=== PATIENT | male | born 1975 | race Caucasian/White ===

== ENCOUNTER 2018-07-28 23:10 | Emergency (ER) | payer OTHER ==
[2018-07-28 23:15] VITALS: BP 115/76; PULSE 86; TEMP 98.8; BMI 27.1
--- NOTE | 2018-07-28 23:21 | PDOC ---
History of Present Illness - General Chief Complaint: Edema Stated Complaint: EDEMA Time Seen by Provider: 07/28/18 23:20 - History of Present Illness Initial Comments: 07/28/18 23:58 43 yo M w a recent L5/S1 spinal fusion surgery on 06/25 was sent [address] Dr[address] Miranda to be evaluated for bilaterall leg and ankle edema as he was worried about a possible DVT. The patient reports no leg pain. The patient endorses a chronic cough bc he use to smoke but no recent changes in his cough caliber. He denies chest pain, SOB or difficulty breathing. He denies having a hx of cancer or prior blood clots. Denies recent fevers, chills, or infections. Denies dysuria, frequency, urgency. Past History - Past Medical History Allergies/Adverse Reactions: Allergies Allergy/AdvReac Type Severity Reaction Status Date / Time meloxicam Allergy Verified 07/28/18 23:12 Home Medications: Ambulatory Orders Gabapentin [Neurontin -] 300 mg PO TID capsule 07/02/18 Tamsulosin HCl [Flomax -] 0.4 mg PO DAILY@0830 30 Days #30 cap.er.24h 07/02/18 Diazepam [Valium] 5 mg PO ONCE 07/28/18 Ferrous Sulfate 325 mg PO DAILY 07/28/18 Folic Acid 1 mg PO DAILY 07/28/18 Oxycodone HCl 5 mg PO Q3H5XD 07/28/18 Pantoprazole Sodium 40 mg PO DAILY 07/28/18 Anemia: No Asthma: No Cancer: No Cardiac Disorders: No CVA: No COPD: No CHF: No Dementia: No Diabetes: No GI Disorders: No Disorders: No HTN: No Hypercholesterolemia: No Liver Disease: No Seizures: No Thyroid Disease: No - Suicide/Smoking/Psychosocial Hx Smoking History: Former smoker Have you smoked in the past 12 months: Yes Number of Cigarettes Smoked Daily: 35 If you are a former smoker, when did you quit?: 1 month ago Information on smoking cessation initiated: No 'Breaking Loose' booklet given: 05/13/14 Hx Alcohol Use: Yes Drug/Substance Use Hx: No Substance Use Type: Alcohol Hx Substance Use Treatment: No Review of Systems - Review of Systems Comments:: 07/29/18 00:04 CONSTITUTIONAL: Absent: fever, chills, diaphoresis, generalized weakness, malaise, loss of appetite HEENT: Absent: rhinorrhea, nasal congestion, throat pain, throat swelling, difficulty swallowing, mouth swelling, ear pain, eye pain, visual Changes CARDIOVASCULAR: Absent: chest pain, syncope, palpitations, irregular heart rate, lightheadedness , peripheral edema RESPIRATORY: Present: Cough Absent: shortness of breath, dyspnea with exertion, orthopnea, wheezing, stridor , hemoptysis GASTROINTESTINAL: Absent: abdominal pain, abdominal distension, nausea, vomiting, diarrhea, constipation, melena, hematochezia GENITOURINARY: Absent: dysuria, frequency, urgency, hesitancy, hematuria, flank pain, genital pain MUSCULOSKELETAL: Present: arthralgia Absent: myalgia, joint swelling SKIN: Absent: rash, itching, pallor HEMATOLOGIC/IMMUNOLOGIC: Absent: easy bleeding, easy bruising, lymphadenopathy, frequent infections ENDOCRINE: Absent: unexplained weight gain, unexplained weight loss, heat intolerance, cold intolerance NEUROLOGIC: Absent: headache, focal weakness or paresthesias, dizziness, unsteady gait, seizure, mental status changes, bladder or bowel incontinence PSYCHIATRIC: Absent: anxiety, depression, suicidal or homicidal ideation, hallucinations. *Physical Exam - Vital Signs Last Vital Signs Temp Pulse Resp BP Pulse Ox 98.8 F 86 18 115/76 97 07/28/18 23:12 07/28/18 23:12 07/28/18 23:12 07/28/18 23:12 07/28/18 23:12 - Physical Exam Comments: 07/29/18 00:06 EXTREMITIES: No cyanosis. No clubbing. No edema. No calf tenderness. SKIN: Warm and dry. Normal capillary refill. No rashes. No jaundice. GENERAL: Well developed, well nourished. Awake and alert. No acute distress. HEENT: Normocephalic, atraumatic. PERRLA, EOMI. No conjunctival pallor. Sclera are non- icteric. Moist mucous membranes. Oropharynx is clear. NECK: Supple. Full ROM. No JVD. No thyromegaly. No lymphadenopathy. CARDIOVASCULAR: Regular rate and rhythm. No murmurs, rubs, or gallops. Distal pulses are 2+ and symmetric. PULMONARY: No evidence of respiratory distress. Lungs clear to auscultation bilaterally. No wheezing, rales or rhonchi. ABDOMINAL: Soft. Non-tender. Non-distended. No rebound or guarding. No organomegaly. Normoactive bowel sounds. MUSCULOSKELETAL Normal range of motion at all joints. No bony deformities or tenderness. No CVA tenderness. NEUROLOGICAL: Alert, awake, appropriate. Cranial nerves 2-12 intact. No deficits to light touch in face, upper extremities and lower extremities. No motor deficits in the in face, upper extremities and lower extremities. Normal speech. Gait is normal without ataxia. PSYCHIATRIC: Cooperative. Good eye contact. Appropriate mood and affect. Medical Decision Making - Medical Decision Making 43 yo M w a recent L5/S1 spinal fusion surgery on 06/25 was sent here by Dr. Miranda to be evaluated for bilaterall leg and ankle edema as he was worried about a possible DVT. DD includes but not limited to: Medication side effect, DVT. Plan: XR, US, EKG, re-assess. US showed no signs of DVT. Ekg showed normal sinus rhythym. XR showed no acute chest pathology. Will DC patient with FU to Dr. Miranda. *DC/Admit/Observation/Transfer Diagnosis at time of Disposition: Leg swelling, Medication side effect - Discharge Dispostion Disposition: HOME Condition at time of disposition: Stable Decision to Admit order: No - Referrals Referrals: Darwin Miranda MD [Non Staff, Medical] - - Patient Instructions Printed Discharge Instructions: Gabapentina, Edema (Alternative Therapy), DI for Peripheral Edema -- Bilateral, DI for Dependent Edema Additional Instructions: You came into the Emergency room because your legs were swollen. We did an ultrasound of your legs which showed that you are not having a blood clot in your legs (another term for blood clot in legs is DVT). We believe you leg swelling is a side effect of the medication gabapentin. Please make sure to follow up with Dr. Miranda in the next 3 to 5 days to make sure you are getting better, your pain is under control, and your leg swelling is being taken care of. Sleep with your legs elevated. Please come back to the emergency room immediately if you start having chest pain, leg pain, shortness of breath or difficulty breathing, develop a high fever or have any other new or worsening concerns. Thank you for coming to the [facility] emergency room. We hope you feel better soon! Print Language: WELSH - Post Discharge Activity
[2018-07-28] MEDS ORDERED: diphenhydrAMINE HCL 50 MG CAPSULE PO ONE (23:44)
[2018-07-28] MEDS ORDERED: ACETAMINOPHEN 1000 MG/100 ML VIAL (NON FORMULARY) IVPB ONE (23:45)
--- NOTE | 2018-07-29 00:39 | PDOC ---
Attending Attestation - Resident Resident Name: Dakota Bolton - ED Attending Attestation I have performed the following: I have examined & evaluated the patient, The case was reviewed & discussed with the resident, I agree w/resident's findings & plan, Exceptions are as noted - HPI HPI: 07/29/18 00:37 pt is s/p surgical procedure and has edema in legs,sent for r/o dvt - Physicial Exam PE: 07/29/18 01:24 tall 43 yo male s/p recent spine surgery p/w edema to both lower legs head ncat neck supple cvs [id number] lungs cta b/l abd nontender extremities +3 edema to both legs,no erythema back pt wearing heavy plastic brace psych appropriate - Medical Decision Making 07/29/18 01:27 duplex doppler was negative for any DVT pt discharged home
[2018-07-29] MEDS ORDERED: diphenhydrAMINE HCL 25 MG CAPSULE (FP) PO ONE (01:29)
[2018-07-29] MEDS ORDERED: ACETAMINOPHEN INJECTION 100 ML IVPB ONE (01:29)
--- NOTE | 2018-07-29 10:51 | EKG ---
Test Reason : Blood Pressure : / mmHG Vent. Rate : 069 BPM Atrial Rate : 069 BPM P-R Int : 172 ms QRS Dur : 086 ms QT Int : 384 ms P-R-T Axes : 043 001 028 degrees QTc Int : 411 ms NORMAL SINUS RHYTHM POSSIBLE INFERIOR INFARCT (CITED ON OR BEFORE 13-JUN-2018) ABNORMAL ECG Confirmed by MD LUCILLE, WESLEY ([id number]) on 07/29/2018 10:51:05 AM Referred By: Confirmed By:WESLEY ADKINS MD
== END 2018-07-29 01:45 | disposition home or self-care (01) ==
LOC: JER 23:10
DX: M79.89 Other specified soft tissue disorders (principal); T65.91XA Toxic effect of unspecified substance, accidental (unintentional), initial encounter; Y92.89 Other specified places as the place of occurrence of the external cause; Z87.891 Personal history of nicotine dependence
CPT/HCPCS: 71046-TC-FY; 72100-TC-FY; 93005; 93010; 93970-TC; 99282-25

== ENCOUNTER 2018-07-29 20:25 | Emergency (ER) | payer OTHER ==
[2018-07-29 20:34] VITALS: BP 126/72; PULSE 98; TEMP 97.6; BMI 25.7
--- NOTE | 2018-07-29 20:35 | PDOC ---
Rapid Medical Evaluation Time Seen by Provider: 07/29/18 20:30 Medical Evaluation: Allergies Allergy/AdvReac Type Severity Reaction Status Date / Time meloxicam Allergy Verified 07/28/18 23:12 07/29/18 20:32 Pt presents to the ED for swollen legs b/l s/p spinal surgery one week ago. Pt evaluated in our ED yesterday for similar symptoms with negative DVT studies. Pt still concerned for DVT. Exam: Pt standing with canes, NAD Orders: Deferred to provider Pt to proceed to ED for further evaluation Discharge Disposition - Diagnosis Leg swelling - Referrals - Patient Instructions - Post Discharge Activity
--- NOTE | 2018-07-29 21:42 | PDOC ---
History of Present Illness <Zainab Cotter - Last Filed: 07/29/18 21:52> - General History Source: Patient, Old Records Exam Limitations: No Limitations - History of Present Illness Initial Comments: 07/29/18 22:01 Patient is a 43 year old male with a significant past medical history of TOB use disorder and Etoh use, who presents to the ED with complaints of bilateral leg swelling that began x2 days ago. Patient reports noticing increased bilateral lower extremity edema, prompting him to come into the ED for further evaluation after becoming concerned for possible DVT. He reports getting duplex dopplers done which showed no evidence of any presence of blood clots within the legs and was discharged home. Patient reports noticing gradual decrease in bilateral leg edema after having his legs elevated, but stated he became worried the swelling did not fully subside, prompting him to come into the ED for secondary evaluation. He reports stopping compliance with use of bilateral compression stockings shortly after leaving [facility] July 23. Denies chest pain, Sob. Denies nausea, vomiting. Denies contact with sick individuals, out of state travelling. Denies fevers, chills. Denies diarrhea, constipation. Denies dysuria, hematuria. Denies any other symptoms. Allergies: Meloxicam Social history: No smoking. Current alcohol use. No illicit drugs. Surgical history: L5/S1 spinal fusion surgery on 06/25. PMD: Dr. Vahe Miranda <Tanner Kendrick - Last Filed: 07/29/18 22:02> - General Chief Complaint: Edema Stated Complaint: SWOLLEN ANKLES Time Seen by Provider: 07/29/18 20:30 Past History - Past Medical History Anemia: No Asthma: No Cancer: No Cardiac Disorders: No CVA: No COPD: No CHF: No Dementia: No Diabetes: No GI Disorders: No Disorders: No HTN: No Hypercholesterolemia: No Liver Disease: No Seizures: No Thyroid Disease: No - Suicide/Smoking/Psychosocial Hx Smoking History: Never smoked Have you smoked in the past 12 months: Yes Number of Cigarettes Smoked Daily: 35 If you are a former smoker, when did you quit?: 1 month ago Information on smoking cessation initiated: No 'Breaking Loose' booklet given: 05/13/14 Hx Alcohol Use: Yes Drug/Substance Use Hx: No Substance Use Type: Alcohol Hx Substance Use Treatment: No <Zainab Cotter - Last Filed: 07/29/18 21:52> <Tanner Kendrick - Last Filed: 07/29/18 22:02> - Past Medical History Allergies/Adverse Reactions: Allergies Allergy/AdvReac Type Severity Reaction Status Date / Time meloxicam Allergy Verified 07/29/18 20:34 Home Medications: Ambulatory Orders Gabapentin [Neurontin -] 300 mg PO TID capsule 07/02/18 Tamsulosin HCl [Flomax -] 0.4 mg PO DAILY@0830 30 Days #30 cap.er.24h 07/02/18 Diazepam [Valium] 5 mg PO ONCE 07/28/18 Ferrous Sulfate 325 mg PO DAILY 07/28/18 Folic Acid 1 mg PO DAILY 07/28/18 Oxycodone HCl 5 mg PO Q3H5XD 07/28/18 Pantoprazole Sodium 40 mg PO DAILY 07/28/18 Review of Systems - Review of Systems Able to Perform ROS?: Yes Comments:: 07/29/18 22:01 CONSTITUTIONAL: +Bilateral lower extremity edema. Absent: fever, chills, diaphoresis, generalized weakness, malaise, loss of appetite HEENT: Absent: rhinorrhea, nasal congestion, throat pain, throat swelling, difficulty swallowing, mouth swelling, ear pain, eye pain, visual changes CARDIOVASCULAR: Absent: chest pain, syncope, palpitations, irregular heart rate, lightheadedness , peripheral edema RESPIRATORY: Absent: cough, shortness of breath, dyspnea with exertion, orthopnea, wheezing, stridor, hemoptysis GASTROINTESTINAL: Absent: abdominal pain, abdominal distension, nausea, vomiting, diarrhea, constipation, melena, hematochezia GENITOURINARY: Absent: dysuria, frequency, urgency, hesitancy, hematuria, flank pain, genital pain MUSCULOSKELETAL: Absent: myalgia, arthralgia, joint swelling SKIN: Absent: rash, itching, pallor HEMATOLOGIC/IMMUNOLOGIC: Absent: easy bleeding, easy bruising, lymphadenopathy, frequent infections ENDOCRINE: Absent: unexplained weight gain, unexplained weight loss, heat intolerance, cold intolerance NEUROLOGIC: Absent: headache, focal weakness or paresthesias, dizziness, unsteady gait, seizure, mental status changes, bladder or bowel incontinence PSYCHIATRIC: Absent: anxiety, depression, suicidal or homicidal ideation, hallucinations. <Tanner Kendrick - Last Filed: 07/29/18 22:02> *Physical Exam - Vital Signs Last Vital Signs Temp Pulse Resp BP Pulse Ox 97.6 F 98 H 18 126/72 96 07/29/18 20:30 07/29/18 20:30 07/29/18 20:30 07/29/18 20:30 07/29/18 20:30 <Zainab Cotter - Last Filed: 07/29/18 21:52> - Vital Signs Last Vital Signs Temp Pulse Resp BP Pulse Ox 97.6 F 98 H 18 126/72 96 07/29/18 20:30 07/29/18 20:30 07/29/18 20:30 07/29/18 20:30 07/29/18 20:30 - Physical Exam Comments: 07/29/18 22:02 GENERAL: Well developed, well nourished. Awake and alert. In no acute distress. HEENT: Normocephalic, atraumatic. PERRLA, EOMI. No conjunctival pallor. Sclerae are non -icteric. Moist mucous membranes. Oropharynx is clear. NECK: Supple. Full ROM. No JVD. Carotid pulses 2+ and symmetric, without bruits. No thyromegaly. No lymphadenopathy. CARDIOVASCULAR: Regular rate and rhythm. No murmurs, rubs, or gallops. Distal pulses are 2+ and symmetric. PULMONARY: No evidence of respiratory distress. Lungs clear to auscultation bilaterally. No wheezing, rales or rhonchi. ABDOMINAL: Soft. Non-tender. Non-distended. No rebound or guarding. No organomegaly. Normoactive bowel sounds. MUSCULOSKELETAL Normal range of motion at all joints. No bony deformities or tenderness. No CVA tenderness. EXTREMITIES: Negative Homans sign. No erythema. No evidence of cellulitis. No cyanosis. No clubbing. No edema. No calf tenderness. SKIN: Warm and dry. Normal capillary refill. No rashes. No jaundice. NEUROLOGICAL: +Wearing back brace. +Ambulate with cane for assistance. Alert, awake, appropriate. Cranial nerves 2-12 intact. No deficits to light touch and temperature in face, upper extremities and lower extremities. No motor deficits in the in face, upper extremities and lower extremities. Normoreflexic in the upper and lower extremities. Normal speech. Toes are downgoing bilaterally. Gait is normal without ataxia. PSYCHIATRIC: Cooperative. Good eye contact. Appropriate mood and affect. <Tanner Kendrick - Last Filed: 07/29/18 22:02> *DC/Admit/Observation/Transfer <Zainab Cotter - Last Filed: 07/29/18 21:52> - Attestations Scribe Attestion: 07/29/18 22:02 Documentation prepared by Tanner Kendrick, acting as medical billing associate for Zainab Cotter MD. <Tanner Kendrick - Last Filed: 07/29/18 22:02> Diagnosis at time of Disposition: Leg swelling, Edema extremities - Discharge Dispostion Disposition: HOME - Referrals Referrals: Vahe Miranda MD [Primary Care Provider] - - Patient Instructions Printed Discharge Instructions: DI for Peripheral Edema -- Bilateral Additional Instructions: please try wearing the surgical stocking and see if they help reduce the edema follow up with Dr Miranda return to the ER if you develop worsening symptoms or shortness of breath - Post Discharge Activity
== END 2018-07-29 22:15 | disposition home or self-care (01) ==
LOC: JER 20:25
DX: R60.0 Localized edema (principal); Z98.890 Other specified postprocedural states
CPT/HCPCS: 99281-25

== ENCOUNTER 2018-09-11 10:01 | Emergency (ER) | payer OTHER ==
[2018-09-11 10:06] VITALS: BP 131/83; PULSE 79; TEMP 97.8; BMI 29.5
--- NOTE | 2018-09-11 10:38 | PDOC ---
History of Present Illness - General Chief Complaint: Back Pain Stated Complaint: BACK PAIN Time Seen by Provider: 09/11/18 10:37 Past History - Past Medical History Allergies/Adverse Reactions: Allergies Allergy/AdvReac Type Severity Reaction Status Date / Time gabapentin Allergy Verified 09/11/18 10:06 meloxicam Allergy Verified 09/11/18 10:06 Home Medications: Ambulatory Orders Gabapentin [Neurontin -] 300 mg PO TID capsule 07/02/18 Tamsulosin HCl [Flomax -] 0.4 mg PO DAILY@0830 30 Days #30 cap.er.24h 07/02/18 Diazepam [Valium] 5 mg PO ONCE 07/28/18 Ferrous Sulfate 325 mg PO DAILY 07/28/18 Folic Acid 1 mg PO DAILY 07/28/18 Oxycodone HCl 5 mg PO Q3H5XD 07/28/18 Pantoprazole Sodium 40 mg PO DAILY 07/28/18 Anemia: No Asthma: No Cancer: No Cardiac Disorders: No CVA: No COPD: No CHF: No Dementia: No Diabetes: No GI Disorders: No Disorders: No HTN: No Hypercholesterolemia: No Liver Disease: No Seizures: No Thyroid Disease: No - Suicide/Smoking/Psychosocial Hx Smoking History: Never smoked Have you smoked in the past 12 months: Yes Number of Cigarettes Smoked Daily: 0 If you are a former smoker, when did you quit?: 06/2018 Information on smoking cessation initiated: No 'Breaking Loose' booklet given: 05/13/14 Hx Alcohol Use: No Drug/Substance Use Hx: No Substance Use Type: None Hx Substance Use Treatment: No *Physical Exam - Vital Signs Last Vital Signs Temp Pulse Resp BP Pulse Ox 97.8 F 79 19 131/83 98 09/11/18 10:03 09/11/18 10:03 09/11/18 10:03 09/11/18 10:03 09/11/18 10:03
--- NOTE | 2018-09-11 11:15 | PDOC ---
History of Present Illness - General Chief Complaint: Back Pain Stated Complaint: BACK PAIN Time Seen by Provider: 09/11/18 10:37 History Source: Patient Exam Limitations: No Limitations Past History - Travel Traveled outside of the country in the last 30 days: No Close contact w/someone who was outside of country & ill: No - Past Medical History Allergies/Adverse Reactions: Allergies Allergy/AdvReac Type Severity Reaction Status Date / Time gabapentin Allergy Verified 09/11/18 10:06 meloxicam Allergy Verified 09/11/18 10:06 Home Medications: Ambulatory Orders Tamsulosin HCl [Flomax -] 0.4 mg PO DAILY@0830 30 Days #30 cap.er.24h 07/02/18 Ferrous Sulfate 325 mg PO DAILY 07/28/18 Folic Acid 1 mg PO DAILY 07/28/18 Oxycodone HCl 5 mg PO Q3H5XD 07/28/18 Pantoprazole Sodium 40 mg PO DAILY 07/28/18 Cyclobenzaprine HCl [Flexeril -] 10 mg PO HS #10 tablet 09/11/18 Methylprednisolone [Medrol Dose Cory] 4 mg PO ASDIR #21 tablet 09/11/18 Anemia: No Asthma: No Cancer: No Cardiac Disorders: No CVA: No COPD: No CHF: No Dementia: No Diabetes: No GI Disorders: No Disorders: No HTN: No Hypercholesterolemia: No Liver Disease: No Seizures: No Thyroid Disease: No - Suicide/Smoking/Psychosocial Hx Smoking History: Never smoked Have you smoked in the past 12 months: Yes Number of Cigarettes Smoked Daily: 0 If you are a former smoker, when did you quit?: 06/2018 Information on smoking cessation initiated: No 'Breaking Loose' booklet given: 05/13/14 Hx Alcohol Use: No Drug/Substance Use Hx: No Substance Use Type: None Hx Substance Use Treatment: No Review of Systems - Review of Systems Able to Perform ROS?: Yes Comments:: 09/11/18 11:14 CONSTITUTIONAL: Absent: fever, chills, diaphoresis, generalized weakness, malaise, loss of appetite HEENT: Absent: rhinorrhea, nasal congestion, throat pain, throat swelling, difficulty swallowing, mouth swelling, ear pain, eye pain, visual Changes CARDIOVASCULAR: Absent: chest pain, loss of consciousness, palpitations, irregular heart rate, peripheral edema RESPIRATORY: Absent: cough, shortness of breath, dyspnea with exertion, orthopnea, wheezing, stridor, hemoptysis GASTROINTESTINAL: Absent: abdominal pain, abdominal distension, nausea, vomiting, diarrhea, constipation, melena, hematochezia GENITOURINARY: Absent: dysuria, frequency, urgency, hesitancy, hematuria, flank pain, genital pain MUSCULOSKELETAL: Absent: myalgia, arthralgia, joint swelling SKIN: Absent: rash, itching, pallor HEMATOLOGIC/IMMUNOLOGIC: Absent: easy bleeding, easy bruising, lymphadenopathy, frequent infections ENDOCRINE: Absent: unexplained weight gain, unexplained weight loss, heat intolerance, cold intolerance NEUROLOGIC: Absent: headache, focal weakness or paresthesias, dizziness, unsteady gait, seizure, mental status changes, bladder or bowel incontinence PSYCHIATRIC: Absent: anxiety, depression, suicidal or homicidal ideation, hallucinations. Is the patient limited Portuguese proficient: No *Physical Exam - Vital Signs Last Vital Signs Temp Pulse Resp BP Pulse Ox 97.8 F 79 19 131/83 98 09/11/18 10:03 09/11/18 10:03 09/11/18 10:03 09/11/18 10:03 09/11/18 10:03 - Physical Exam Comments: 09/11/18 11:14 GENERAL: Well developed, well nourished. Awake and alert. No acute distress. HEENT: Normocephalic, atraumatic. PERRLA, EOMI. No conjunctival pallor. Sclera are non- icteric. Moist mucous membranes. Oropharynx is clear. NECK: Supple. Full ROM. No JVD. Carotid pulses 2+ and symmetric, without bruits. No thyromegaly. No lymphadenopathy. CARDIOVASCULAR: Regular rate and rhythm. No murmurs, rubs, or gallops. Distal pulses are 2+ and symmetric. PULMONARY: No evidence of respiratory distress. Lungs clear to auscultation bilaterally. No wheezing, rales or rhonchi. ABDOMINAL: Soft. Non-tender. Non-distended. No rebound or guarding. No organomegaly. Normoactive bowel sounds. MUSCULOSKELETAL Normal range of motion at all joints. No bony deformities or tenderness. No CVA tenderness. EXTREMITIES: No cyanosis. No clubbing. No edema. No calf tenderness. SKIN: Warm and dry. Normal capillary refill. No rashes. No jaundice. NEUROLOGICAL: Alert, awake, appropriate. Cranial nerves 2-12 intact. No deficits to light touch and temperature in face, upper extremities and lower extremities. No motor deficits in the in face, upper extremities and lower extremities. Normoreflexic in the upper and lower extremities. Normal speech. Toes are down- going bilaterally. Gait is normal without ataxia. PSYCHIATRIC: Cooperative. Good eye contact. Appropriate mood and affect. Medical Decision Making - Medical Decision Making 09/11/18 13:12 Pt is a 43 y/o M with hx of spinal fusion to L5, who presents with Low back pain s/p a hard sneeze on Saturday09/09/18 -Pt with TTP of the L paraspinous muscles, L5, with palpable knot consistent with muscle spasm. Pt also has a positive straight leg raise on the L consistent with sciatica -No trauma, or fever. No saddle anesthesia or bladder/bowel incontinence. No CVA tenderness. -X-ray of lumbar spine is unchanged from 08/31. No fractures. -Pt is neurologically intact on exam with no focal findings. Patellar reflexes 2 + intact b/l. Strength 5/5 in lower extremities. No foot drop. -Toradol and flexeril given with relief of symptoms -DC home. Pt told to follow up with Dr. Miranda for further management -I discussed the physical exam findings, ancillary test results and final diagnoses with the patient. I answered all of the patient's questions. The patient was satisfied with the care received and felt comfortable with the discharge plan and treatment plan. The Patient agrees to follow up with the primary care physician/specialist within 24-72 hours. Return precautions were given Pt was requesting a refill of his oxycodone. Pt recently filled a prescription for a 10 day supply on 09/04/18. Will not refill at this time as it is not appropriate. Explained to patient that he would have to follow up with Dr. Miranda. Reference #: [id number] *DC/Admit/Observation/Transfer Diagnosis at time of Disposition: Low back pain Qualifiers: Chronicity: acute Back pain laterality: left Sciatica presence: with sciatica Sciatica laterality: sciatica of left side Qualified Code(s): M54.42 - Lumbago with sciatica, left side - Discharge Dispostion Disposition: HOME Condition at time of disposition: Stable Decision to Admit order: No - Referrals Referrals: Vahe Miranda MD [Staff Physician] - - Patient Instructions Printed Discharge Instructions: DI for Back Pain With Sciatica Additional Instructions: You have low back pain due to a muscle spasm. Please take the prednisone as prescribed. This with help with the nerve pain. Follow the instructions on the packaging. You were also prescribed Flexeril. Please take this medication every 8 hours for the first day. Then take the medication before you go to bed. Do not drive after taking this medication as it may make you sleepy. You were also prescribed You may use warm compresses on your back to help with her symptoms. Please follow-up with your primary care doctor. If your symptoms do not resolve in 3-5 days, follow-up with orthopedics. A referral has been provided for you. Return to the emergency department if you have worsening back pain, bladder or bowel incontinence, numbness and tingling in her legs, changes in the way you walk, or any new or worsening symptoms. - Post Discharge Activity
--- NOTE | 2018-09-11 11:34 | PDOC ---
*Physical Exam - Vital Signs Last Vital Signs Temp Pulse Resp BP Pulse Ox 97.8 F 79 19 131/83 98 09/11/18 10:03 09/11/18 10:03 09/11/18 10:03 09/11/18 10:03 09/11/18 10:03 Medical Decision Making - Medical Decision Making 09/11/18 11:34 Vital Signs Temp Pulse Resp BP Pulse Ox 97.8 F 79 19 131/83 98 09/11/18 10:03 09/11/18 10:03 09/11/18 10:03 09/11/18 10:03 09/11/18 10:03 Pt seen by the Advanced Practice Provider under my direct supervision Ancillary studies reviewed I agree with plan as outlined by the Advanced Practice Provider BRYON Ramírez
[2018-09-11] MEDS ORDERED: KETOROLAC TROMETHAMINE 60 MG/2 ML VIAL IM ONE (11:46)
[2018-09-11] MEDS ORDERED: CYCLOBENZAPRINE HCL 10 MG TABLET (FP) PO ONE (11:46)
[2018-09-11] MEDS ORDERED: KETOROLAC TROMETHAMINE 60 MG/2 ML VIAL ONE (11:50)
[2018-09-11] MEDS ORDERED: CYCLOBENZAPRINE HCL 10 MG TABLET (FP) ONE (11:50)
== END 2018-09-11 13:48 | disposition home or self-care (01) ==
LOC: JER 10:01
PROC: 3E0233Z Introduction of Anti-inflammatory into Muscle, Percutaneous Approach (ICD-10-PCS; principal; 2018-09-11)
DX: M54.42 Lumbago with sciatica, left side (principal); Z98.1 Arthrodesis status
CPT/HCPCS: 72100-TC-FY; 99282-25

== ENCOUNTER 2018-11-26 15:33 | Inpatient (IN) | payer OTHER ==
--- NOTE | 2018-11-26 15:37 | PDOC ---
Rapid Medical Evaluation Medical Evaluation: Allergies Allergy/AdvReac Type Severity Reaction Status Date / Time gabapentin Allergy Verified 09/11/18 10:06 meloxicam Allergy Verified 09/11/18 10:06 11/26/18 15:38 I performed a brief in-person evaluation of this patient. Chief complaint is: Back pain. Chronic back pain s/p spinal fusion in June with Dr. Miranda, stumbled yesterday and has exacerbation of back pain radiating down right arm. No incontinence. Pertinent physical exam findings include: +Subjective decreased sensation in legs. ROM limited secondary to pain - unable to sit in chair. I have ordered the following: None Patient will proceed to the ED for further evaluation. Discharge Disposition - Diagnosis Back pain Qualifiers: Back pain location: low back pain Chronicity: acute Back pain laterality: midline Sciatica presence: without sciatica Qualified Code(s): M54.5 - Low back pain - Referrals - Patient Instructions - Post Discharge Activity
--- NOTE | 2018-11-26 16:50 | CONSULT ---
Consult - text type - Consultation Consultation Note: NEUROSURGERY CONSULTATION Vahe Mobley is a pleasant 43 year old male who has a history of low back pain and underwent Lumbar Fusion surgery on July 01, 2018 at [facility] with Dr. Chirag Miranda. Unfortunately, he describes a very difficult postoperative course with more pain after the surgery and progressive gait impairment. He still wears a hard shell TLSO brace and walks with a spastic and antalgic gait. He has presented to the ER on several occasions and plain film radiographs suggest no obvious etiology for his pain. He has been having neck pain and spasticity in his upper and lower extremities which is progressing. He describes spontaneous clonus and is markedly hyperreflexic on Physical Examination. 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 The patient describes numbness and tingling in his hands as well as a loss of fine motor skills and difficulty performing delicate tasks. He is unable to tie his shoes, although part of this problem is attributable to his pain with bending at the waist. The patient also describes dropping things from his hands such as spoons when making tea. The patient recently developed significant increase in his neck and shoulder pains and bilateral brachialgia. The patient has significant low back pain and gluteal pain as well and difficulty standing on his toes. His balance is impaired and he appears in great distress. The patient was directed to the ER by Dr. Walter who has requested that I consult on him for further evaluation and management. At this point, we need imaging of these regions and my understanding is that the plan is admission for pain control and establishment of a diagnosis and treatment plan. - MRI Cervical & Lumbar (both without contrast) - PATIENT MAY GO TO THE OR SOON BASED UPON THESE FINDINGS - CT Lumbar (without contrast) - GI/DVT Prophylaxis
[2018-11-26] MEDS ORDERED: morphine CARPU-JECT 2 MG/1 ML DISP.SYRIN IM ONE (17:03)
[2018-11-26] MEDS ORDERED: CYCLOBENZAPRINE HCL 10 MG TABLET (FP) PO ONE (17:03)
[2018-11-26] MEDS ORDERED: morphine SULFATE 4 MG/ML VIAL ONE (17:10)
[2018-11-26] MEDS ORDERED: CYCLOBENZAPRINE HCL 10 MG TABLET (FP) ONE (17:10)
--- NOTE | 2018-11-26 17:22 | PDOC ---
History of Present Illness - General Chief Complaint: Back Pain Stated Complaint: BACK PAIN Time Seen by Provider: 11/26/18 15:43 History Source: Patient Exam Limitations: Clinical Condition - History of Present Illness Initial Comments: 11/26/18 17:16 Patient is a 43-year-old male with past medical history of spinal fusion in June, who presents to the emergency department today for low back pain radiating down his b/l leg. Patient states he went for physical therapy and bend over and stumbled and now have pain to right side of neck with numbness and tingling sensation right right hands. Patient report increased pain to neck when he sits up straight. Patient has been taking home oxycodone with no improvement. Patient report 7/10 pain to both neck and shoulder with oxycodone. Denies fevers, chills, nausea, vomiting, gait changes, bladder/bowel incontinence, saddle anesthesia, and gait changes. Timing/Duration: 24 hours, getting worse Past History - Past Medical History Allergies/Adverse Reactions: Allergies Allergy/AdvReac Type Severity Reaction Status Date / Time gabapentin Allergy Verified 11/26/18 19:54 meloxicam Allergy Verified 11/26/18 19:54 Home Medications: Ambulatory Orders Tamsulosin HCl [Flomax -] 0.4 mg PO DAILY@0830 30 Days #30 cap.er.24h 07/02/18 Ferrous Sulfate 325 mg PO DAILY 07/28/18 Folic Acid 1 mg PO DAILY 07/28/18 Oxycodone HCl 5 mg PO Q3H5XD 07/28/18 Cyclobenzaprine HCl [Flexeril -] 10 mg PO HS #10 tablet 09/11/18 Anemia: No Asthma: No Cancer: No Cardiac Disorders: No CVA: No COPD: No CHF: No Dementia: No Diabetes: No GI Disorders: No Disorders: No HTN: No Hypercholesterolemia: No Liver Disease: No Seizures: No Thyroid Disease: No - Immunization History Immunization Up to Date: No - Suicide/Smoking/Psychosocial Hx Smoking History: Former smoker Have you smoked in the past 12 months: No Number of Cigarettes Smoked Daily: 0 If you are a former smoker, when did you quit?: 06/2018 Information on smoking cessation initiated: No 'Breaking Loose' booklet given: 05/13/14 Hx Alcohol Use: No Drug/Substance Use Hx: No Substance Use Type: None Hx Substance Use Treatment: No Review of Systems - Review of Systems Able to Perform ROS?: Yes Is the patient limited Kyrgyz proficient: No Constitutional: Yes: Weakness (right upper arm) HEENTM: No: Symptoms Reported Respiratory: No: Symptoms reported Cardiac (ROS): No: Symptoms Reported ABD/GI: No: Nausea, Vomiting Musculoskeletal: Yes: Back Pain (right side of back and right gluteal area), Joint Pain (right side of neck), Muscle Pain (right side of neck), Muscle Weakness (right upper arm) Neurological: Yes: Numbness, Paresthesia (right upper arm), Tingling (right UE, B/L LE) All Other Systems: Reviewed and Negative *Physical Exam - Vital Signs Last Vital Signs Temp Pulse Resp BP Pulse Ox 98.1 F 103 H 16 122/84 98 11/26/18 15:43 11/26/18 15:43 11/26/18 15:43 11/26/18 15:43 11/26/18 15:43 - Physical Exam Comments: 11/26/18 17:24 GENERAL: Well developed, well nourished. Awake and alert in moderate acute distress. CARDIOVASCULAR: Regular rate and rhythm. No murmurs, rubs, or gallops. PULMONARY: No evidence of respiratory distress. Lungs clear to auscultation bilaterally. No wheezing, rales or rhonchi. ABDOMINAL: Soft. Non-tender. Non-distended. No rebound or guarding. No organomegaly. Normoactive bowel sound MUSCULOSKELETAL :moderate tenderness to right paracervical muscle of C3-S7 pain worsening with external rotation of neck to left. positive tremors to right hands with elevation of right upper arm above 90degress. subjective tingling sensation to right hand. moderate tenderness to right paravertebral muscle of L4 -S1 and right upper gluteal muscle. negative arm drop of B/L upper extremities. SKIN: Warm and dry. Normal capillary refill. No rashes. No jaundice. NEUROLOGICAL: Alert, awake, appropriate. No motor deficits in the lower extremities. Gait is normal without ataxia. PSYCHIATRIC: Cooperative. Good eye contact. Appropriate mood and affect. 11/26/18 17:50 General Appearance: Yes: Nourished, Appropriately Dressed, Moderate Distress Moderate Sedation - Procedure Monitoring Vital Signs: Procedure Monitoring Vital Signs Temperature 98.1 F 11/26/18 15:43 Pulse Rate 103 H 11/26/18 15:43 Respiratory Rate 16 11/26/18 15:43 Blood Pressure 122/84 11/26/18 15:43 O2 Sat by Pulse Oximetry (%) 98 11/26/18 15:43 ED Treatment Course - LABORATORY CBC & Chemistry Diagram: 11/27/18 02:00 11/27/18 02:00 - RADIOLOGY Radiology Studies Ordered: Category Date Time Status LUMBAR SPINE CT W/O CONTRAST [CT] Stat CT Scan 11/26/18 16:37 Ordered CERVICAL SPINE MRI W/O CONTR [MRI] Stat MRI 11/26/18 16:37 Ordered LUMBAR SPINE MRI W/O CONTRAST [MRI] Stat MRI 11/26/18 16:37 Ordered Medical Decision Making - Medical Decision Making 11/26/18 17:49 Patient is a 43-year-old male with past medical history of spinal fusion in June, who presents to the emergency department today for low back pain radiating down his b/l leg. Patient states he went for physical therapy and bend over and stumbled and now have pain to right side of neck with numbness and tingling sensation right right hands. Patient report increased pain to neck when he sits up straight. Patient has been taking home oxycodone with no improvement. Patient report 7/10 pain to both neck and shoulder on oxycodone. Exam significant for moderate tenderness to right paracervical muscle of C3-S7 pain worsening with external rotation of neck to left. positive tremors to right hands with elevation of right upper arm above 90degress. subjective tingling sensation to right hand. moderate tenderness to right paravertebral muscle of L4-S1 and right upper gluteal muscle. negative arm drop of B/L upper extremities. 11/26/18 18:[address] Damon will request to have MRI of lumbar and cervical spine with CT of lumbar spine with admission for possible forearm based on MRI CT finding. Reported patient symptoms likely spondylosis of the cervical spine. Patient reported no improvement from spinal fusion surgery done last June. Patient will be admitted for MRI and CT and pain control and will be seen by neurosurgery in the morning for disposition. *DC/Admit/Observation/Transfer Diagnosis at time of Disposition: Cervicalgia Back pain Qualifiers: Back pain location: low back pain Chronicity: acute Back pain laterality: midline Sciatica presence: without sciatica Qualified Code(s): M54.5 - Low back pain - Discharge Dispostion Disposition: HOME Condition at time of disposition: Stable Decision to Admit order: Yes Decision to Admit order Date/Time: 11/26/18 17:[address] Damon neurosurgery who request MRI of cervical spine and lumbar spine and CT of lumbar spine spine for possible surgery based on imaging results. Patient to be admitted to Dr. Cornell as per Dr. Damon. 11/28/18 10:10 - Referrals - Patient Instructions - Post Discharge Activity
[2018-11-27] MEDS ORDERED: CYCLOBENZAPRINE HCL 10 MG TABLET (FP) PO ONE (02:05)
--- NOTE | 2018-11-27 02:12 | HP ---
CHIEF COMPLAINT: Cervical and R- Arm Numbness, Low Back Pain with radiation to bilateral legs PCP: Dr. Clifford Cornell HISTORY OF PRESENT ILLNESS: This is a 43 y/o man with a PMHx of Spinal Fusion 06/2018. Who presents to the ED with painand numbness to the right cervical aspect with numbness to the right arm s/p stumble x yesterday. Patient reports being seen by the [place] and was to stand on his toes, while doing that he said he stumbled causing " shocking like pain" to the right lateral side of his neck to the right arm. Patient reports having "burning numbness" to his right arm as well. Patient reports having "burning sensation to his lower legs". Patient reports using a Back Brace, Crutches to ambulate. Patient denies bowel or bladder incontinence, no saddle anesthesia. Patient denies fever, chills, cough, dizziness, SOB, CP, AP, N/V/D, constipation, dysuria. ER course was notable for: (1) CT Lumbar Spine- s/p posterior fusion L5 S1 (2) Cervical Spine MRI- C6 C7 broad based right posteriolateral extruded disc with mild cephalad and caudal extension of the disc material. C4-C5 loss disc space height. Mild posterior disc osteophyte complex encroaching on the ventral subarachnoid space. OA of uncovertebral joints, bilateral neural foraminal narrowing. C5-C6 loss disc space height, central spinal canal stenosis. (3) Lumbar Spine MRI- L5-S1: Loss disc space height, disc desiccation, no evidence of disc herniation. central spinal canal stenosis Recent Travel: None PAST MEDICAL HISTORY: See HPI PAST SURGICAL HISTORY: See HPI Social History: Smoking:Denies Alcohol: Denies Drugs: Denies Former Ashley- Disabled Family History: Father- CAD Mother- Angina Allergies gabapentin Allergy (Verified 11/26/18 19:54) meloxicam Allergy (Verified 11/26/18 19:54) HOME MEDICATIONS: Home Medications Medication Instructions Recorded Tamsulosin HCl [Flomax -] 0.4 mg PO DAILY@0830 30 Days #30 07/02/18 cap.er.24h Ferrous Sulfate 325 mg PO DAILY 07/28/18 Folic Acid 1 mg PO DAILY 07/28/18 Oxycodone HCl 5 mg PO Q3H5XD 07/28/18 Cyclobenzaprine HCl [Flexeril -] 10 mg PO HS #10 tablet 09/11/18 REVIEW OF SYSTEMS CONSTITUTIONAL: Absent: fever, chills, diaphoresis, generalized weakness, malaise, loss of appetite, weight change HEENT: Absent: rhinorrhea, nasal congestion, throat pain, throat swelling, difficulty swallowing, mouth swelling, ear pain, eye pain, visual changes CARDIOVASCULAR: Absent: chest pain, syncope, palpitations, irregular heart rate, lightheadedness , peripheral edema RESPIRATORY: Absent: cough, shortness of breath, dyspnea with exertion, orthopnea, wheezing, stridor, hemoptysis GASTROINTESTINAL: Absent: abdominal pain, abdominal distension, nausea, vomiting, diarrhea, constipation, melena, hematochezia GENITOURINARY: Absent: dysuria, frequency, urgency, hesitancy, hematuria, flank pain, genital pain MUSCULOSKELETAL: arthralgia, back pain, neck pain Absent: myalgia, joint swelling SKIN: Absent: rash, itching, pallor HEMATOLOGIC/IMMUNOLOGIC: Absent: easy bleeding, easy bruising, lymphadenopathy, frequent infections ENDOCRINE: Absent: unexplained weight gain, unexplained weight loss, heat intolerance, cold intolerance NEUROLOGIC: paresthesias Absent: headache, focal weakness, dizziness, unsteady gait, seizure, mental status changes, bladder or bowel incontinence PSYCHIATRIC: Absent: anxiety, depression, suicidal or homicidal ideation, hallucinations. PHYSICAL EXAMINATION Vital Signs - 24 hr 11/26/18 11/26/18 15:43 23:45 Temperature 98.1 F Pulse Rate 103 H Pulse Rate [ 85 Right] Respiratory 16 18 Rate Blood Pressure 122/84 Blood Pressure 118/80 [Left Arm] O2 Sat by Pulse 98 99 Oximetry (%) GENERAL: Awake, alert, and fully oriented, in mild distress. HEAD: Normal with no signs of trauma. EYES: Pupils equal, round and reactive to light, extraocular movements intact, sclera anicteric, conjunctiva clear. No lid lag. EARS, NOSE, THROAT: Ears normal, nares patent, oropharynx clear without exudates. Moist mucous membranes. NECK: Normal range of motion, supple without lymphadenopathy, JVD, or masses. LUNGS: Breath sounds equal, clear to auscultation bilaterally. No wheezes, and no crackles. No accessory muscle use. HEART: Regular rate and rhythm, normal S1 and S2 without murmur, rub or gallop. ABDOMEN: Soft, nontender, not distended, normoactive bowel sounds, no guarding, no rebound, no masses. No hepatomegaly or splenomegaly. MUSCULOSKELETAL: Limited range of motion at all joints.Cervical, Lumbar tenderness. No bony deformities. No CVA tenderness. UPPER EXTREMITIES: 2+ pulses, warm, well-perfused. No cyanosis. No clubbing. No peripheral edema. LOWER EXTREMITIES: 2+ pulses, warm, well-perfused. No calf tenderness. No peripheral edema. NEUROLOGICAL: decreased sensation to right lower leg. Cranial nerves II-XII intact. Normal speech. Gait not observed. PSYCHIATRIC: Cooperative. Good eye contact. Appropriate mood and affect. SKIN: Warm, dry, normal turgor, no rashes or lesions noted, normal capillary refill. ASSESSMENT/PLAN: This is a 43 y/o man s/p Lumbar Fusion (06/2018). Admitted for Intractable Cervical and Lumbar Pain for further evaluation of their emergent condition. Plan: See Problem List FEN D51/2nS@75ml/hr Replete lytes prn NPO DVT ppx OOB SCDs Heparin SQ Code Status: Full Code Dispo: Requires Inpatient Care Problem List - Problem (1) Cervicalgia Assessment/Plan: CT Spine- reviewed Dr. Vane Callahan following Flexeril prn Code(s): M54.2 - CERVICALGIA (2) Intractable low back pain Assessment/Plan: s/p Lumbar Fusion Dr. Remington Callahan following CBC, BMP, preop labs ordered Lumbar CT- s/p posterior fusion LSP MRI- L5-S1 loss disc space height, disc desiccation. no evidence of disc herniation, central spinal canal stenosis Morphine Sulfate prn Will keep NPO until cleared by neurosurgery Monitor vitals Code(s): M54.5 - LOW BACK PAIN (3) S/P lumbar laminectomy Code(s): Z98.890 - OTHER SPECIFIED POSTPROCEDURAL STATES Visit type - Emergency Visit Emergency Visit: Yes ED Registration Date: 11/26/18 Care time: The patient presented to the Emergency Department on the above date and was hospitalized for further evaluation of their emergent condition. - New Patient This patient is new to me today: Yes Date on this admission: 11/27/18 - Critical Care Critical Care patient: No
[2018-11-27 02:14] LABS: BASO % 0.9 % (0-2.0); EOS % 3.5 % (0-4.5); HEMATOCRIT 41.6 % (35.4-49); HEMOGLOBIN 14.2 GM/dL (11.7-16.9); LYMPH % 39.7 % (8-40); MCH 29.9 pg (25.7-33.7); MCHC 34.2 g/dl (32.0-35.9); MEAN CELL VOLUME 87.6 fl (80-96); MEAN PLT VOLUME 8.6 fl (7.5-11.1); MONO % 9.2 % (3.8-10.2); NEUT % 46.7 % (42.8-82.8); PLATELET COUNT 264 K/MM3 (134-434); RBC 4.75 M/mm3 (4.00-5.60); WHITE BLOOD COUNT 8.7 K/mm3 (4.0-10.0)
[2018-11-27] MEDS ORDERED: DEXTROSE 5%-0.45% SALINE 1,000 ML IV SCH (02:15)
[2018-11-27 02:34] LABS: INR 1.03 (0.83-1.09); PROTHROMBIN TIME (PATIENT) 12.1 SEC (9.7-13.0)
[2018-11-27 02:49] LABS: ANION GAP 8 MMOL/L (8-16); BLOOD UREA NITROGEN 18 mg/dL (7-18); CHLORIDE 107 mmol/L (98-107); CO2 28 mmol/L (21-32); CREATININE 0.7 mg/dL (0.55-1.3); GLUCOSE,RANDOM 94 mg/dL (74-106); SODIUM 142 mmol/L (136-145)
[2018-11-27 04:11] VITALS: BMI 35.3
--- NOTE | 2018-11-27 11:18 | PN ---
Progress Note, Physician History of Present Illness: pt seen/ examined chart reviewed Extensive talk with patient and patient's Complains of pain with movement of the neck MRIs reviewed Discussed with neurosurgery also today Scheduled for surgery tomorrow Denies chest pain or shortness of breath. denies abdominal pain - Current Medication List Current Medications: Active Medications Morphine Sulfate (Morphine Sulfate) 4 mg IVPUSH Q6H PRN PRN Reason: PAIN LEVEL 7 - 10 Stop: 11/28/18 02:01 Tamsulosin HCl (Flomax -) 0.4 mg PO DAILY@0830 [facility] - Objective Vital Signs: Vital Signs Temperature 97.6 F 11/27/18 09:45 Pulse Rate 64 11/27/18 09:45 Respiratory Rate 18 11/27/18 09:45 Blood Pressure 141/66 11/27/18 09:45 O2 Sat by Pulse Oximetry (%) 98 11/27/18 04:47 Constitutional: Yes: Mild Distress, Obese Eyes: Yes: Conjunctiva Clear Cardiovascular: Yes: Regular Rate and Rhythm Respiratory: Yes: CTA Bilaterally Gastrointestinal: Yes: Soft Edema: No Neurological: Yes: Alert Psychiatric: Yes: Alert Labs: CBC, BMP 11/27/18 02:00 11/27/18 02:00 INR, PTT INR 1.03 (0.83-1.09) 11/27/18 02:00 - ....Imaging MRI: Report Reviewed EKG: Pending Problem List - Problems (1) Obesity Code(s): E66.9 - OBESITY, UNSPECIFIED (2) Back pain Code(s): M54.9 - DORSALGIA, UNSPECIFIED Qualifiers: Back pain location: low back pain Chronicity: acute Back pain laterality : midline Sciatica presence: without sciatica Qualified Code(s): M54.5 - Low back pain (3) Cervicalgia Code(s): M54.2 - CERVICALGIA (4) DVT prophylaxis Code(s): [id number] - (5) S/P lumbar laminectomy Code(s): Z98.890 - OTHER SPECIFIED POSTPROCEDURAL STATES Assessment/Plan clinically stable Pain control Labs reviewed EKG--- ordered Start on feeding--and by mouth after midnight DVT prophylaxis neurology to follow medically stable for proposed procedure discussed in detail with patient and patient's We will follow
[2018-11-27] MEDS: ENOXAPARIN NA (PORCINE) 40 MG/0.4 ML DISP.SYRIN SQ SCH (12:01)
[2018-11-27] MEDS: TAMSULOSIN HCL 0.4 MG CAP PO SCH (12:01)
--- NOTE | 2018-11-27 13:22 | PN ---
Progress Note (short form) - Note Progress Note: On November 27, 2018, patient encountered in bed with pain associated with changes of neck position. He gets transient numbness, pain and weakness into his hands associated with neck movements. CT Lumbar demonstrates that the L5 screws traverse the L45 facets bilaterally. MRI Lumbar demonstrates possible Left L5 nerve root irritation in the foramen. MRI Cervical demonstrates spondylosis with a congenitally narrow spinal canal and osteophytes, hypertrophic posterior longitudinal ligament and disc protrusions which efface the Ventral CSF space and deform the ventral contours of the Cervical spinal cord. There is a loss of lordosis. The AP canal diameters are measured as C45 is 9mm; C56 is 8mm; & C67 is 6mm. There is acute disc material at C67. The patient may benefit from revision of his Lumbar construct which would involve exploration of his spinal fusion, removal of hardware, inspection of the L45 facets and likely extension to L4 with interbody cage and arthrodesis at L45. I am more concerned about his myelopathy and acute and progressing Cervical spine disease. Given his symptoms which are extremely troublesome to him and result in impairment of his sleep and activities of daily living, it is worth considering the role of decompression and fusion. I described a variety of treatment strategies. Given his young age, C5 & C6 corpectomies with complete decompression of the spinal cord and reconstruction with a PEEK cage and anterior plating with denominational of Lordosis would seem to represent a good solution for a single stage, complete decompression and reconstruction from the less invasive, anterior Cervical approach. I discussed the risks, benefits and alternatives to C5 & C6 corpectomies with complete decompression of the spinal cord and denominational of Lordosis with reconstruction using a PEEK cage and anterior plating in detail. I explained that the risks included, but were not limited to: , coma, paralysis, bleeding, infection, CSF leakage possibly requiring spinal drainage or additional surgery, failure to fuse, instrumentation migration/malposition/malfunction and the need for additional surgery.All questions were answered. Informed consent was obtained. I offered the patient the option of seeking another opinion or another surgeon. I outlined the anatomy, pathology and proposed surgery as well as various potential complications. The patient and spouse asked intelligent questions and demonstrated a sound understanding of the information presented. They ask that we proceed with scheduling this procedure as described. I will prepare the patient for surgery in the morning and will request to assist with hart placement due to difficulties encountered during his previous surgery.
--- NOTE | 2018-11-27 16:20 | EKG ---
Test Reason : Blood Pressure : / mmHG Vent. Rate : 078 BPM Atrial Rate : 078 BPM P-R Int : 154 ms QRS Dur : 082 ms QT Int : 374 ms P-R-T Axes : 048 -10 028 degrees QTc Int : 426 ms NORMAL SINUS RHYTHM NORMAL ECG WHEN COMPARED WITH ECG OF 27-NOV-2018 02:00, NO SIGNIFICANT CHANGE WAS FOUND Confirmed by CARL BAL MD ([id number]) on 11/27/2018 4:20:33 PM Referred By: BEBA PATTERSON Confirmed By:CARL BAL MD
[2018-11-27] MEDS: morphine SULFATE 4 MG/ML VIAL IVPUSH PRN ×2 (16:22→22:42)
[2018-11-27 18:40] LABS: INR 1.01 (0.83-1.09); PROTHROMBIN TIME (PATIENT) 11.9 SEC (9.7-13.0)
[2018-11-27] MEDS ORDERED: CYCLOBENZAPRINE HCL 10 MG TABLET (FP) PO SCH (22:00)
[2018-11-27] MEDS ORDERED: CHLORHEXIDINE GLUCONATE 4% CLEANSER FOR DECOLONIZATION TP SCH (22:00)
[2018-11-28] MEDS ORDERED: morphine SULFATE 4 MG/ML VIAL IVPUSH PRN ×2 (05:16→12:18)
[2018-11-28] MEDS ORDERED: THROMBIN (BOVINE) 20,000 UNIT VIAL TP ONE (07:36)
[2018-11-28] MEDS ORDERED: LIDOCAINE 1%-EPI 1:100,000 30 ML MDV IJ ONE (07:36)
[2018-11-28] MEDS ORDERED: GENTAMICIN SO4 80 MG/2 ML VIAL ONE (07:36)
[2018-11-28] MEDS: TAMSULOSIN HCL 0.4 MG CAP PO SCH (08:25)
[2018-11-28] MEDS ORDERED: PROMETHAZINE HCL 25 MG/1 ML VIAL IVPB PRN ×2 (08:46→12:18)
[2018-11-28] MEDS ORDERED: DEXAMETHASONE SOD PHOSPHATE 4 MG/1 ML VIAL IVPUSH PRN ×2 (08:46→12:18)
[2018-11-28] MEDS ORDERED: ONDANSETRON 4 MG/2 ML VIAL IVPUSH PRN ×2 (08:46→12:18)
[2018-11-28] MEDS ORDERED: MIDAZOLAM HCL 2 MG/2 ML SINGLE DOSE VIAL ONE (08:52)
[2018-11-28] MEDS ORDERED: PROPOFOL 20 ML ONE (08:52)
[2018-11-28] MEDS ORDERED: ROCURONIUM BROMIDE 50 MG/5 ML VIAL ONE ×2 (08:53→10:26)
[2018-11-28] MEDS ORDERED: LIDOCAINE HCL/PF 2% SDV 5ML VIAL ONE (08:53)
[2018-11-28] MEDS ORDERED: HYDROmorphone *PCA* 10MG/50ML DISP.SYRIN PCA SCH ×3 (09:00→23:29)
[2018-11-28] MEDS ORDERED: LACTATED RINGERS SOLUTION 1,000 ML IV SCH ×2 (09:00→12:18)
[2018-11-28] MEDS ORDERED: LIDOCAINE HCL 2% JELLY 10 ML CARTRIDGE ONE (09:20)
[2018-11-28] MEDS ORDERED: ceFAZolin SODIUM 1 GM VIAL ONE (09:41)
[2018-11-28] MEDS ORDERED: SODIUM CHLORIDE 0.9% P/F 10 ML VIAL IJ ONE ×2 (09:41→09:45)
[2018-11-28] MEDS ORDERED: ceFAZolin SODIUM 1 GM VIAL IVPB ONE (09:44)
[2018-11-28] MEDS ORDERED: VANCOMYCIN 1,000 MG VIAL (RESTRICTED TO ID ONLY) ONE (09:45)
[2018-11-28] MEDS ORDERED: ONDANSETRON 4 MG/2 ML VIAL ONE (09:46)
[2018-11-28] MEDS ORDERED: DEXAMETHASONE SOD PHOSPHATE 4 MG/1 ML VIAL ONE (09:46)
[2018-11-28] MEDS ORDERED: VANCOMYCIN 1,000 MG VIAL (RESTRICTED TO ID ONLY) IVPB ONE (09:48)
[2018-11-28] MEDS ORDERED: DESFLURANE GAS 240 ML BOTTLE IH ONE (09:49)
[2018-11-28] MEDS: ENOXAPARIN NA (PORCINE) 40 MG/0.4 ML DISP.SYRIN SQ SCH (09:52)
[2018-11-28] MEDS ORDERED: GELATIN, ABSORBABLE 12-7MM EACH SPONGE TP ONE (09:59)
[2018-11-28] MEDS ORDERED: BACITRACIN 50,000 UNITS VIAL TP ONE (09:59)
[2018-11-28] MEDS ORDERED: THROMBIN (BOVINE) 5,000 UNIT VIAL TP ONE (09:59)
[2018-11-28] MEDS ORDERED: HYDROGEN PEROXIDE 473 ML PO ONE (09:59)
[2018-11-28] MEDS ORDERED: GENTAMICIN SO4 80 MG/2 ML VIAL IVPB ONE (09:59)
[2018-11-28] MEDS ORDERED: FOLIC ACID 1 MG TABLET (FP) PO SCH (10:00)
[2018-11-28] MEDS ORDERED: FERROUS SO4 325 MG TABLET (FP) PO SCH (10:00)
[2018-11-28] MEDS ORDERED: GLYCOPYRROLATE 0.2 MG/1 ML VIAL ONE (11:23)
[2018-11-28] MEDS ORDERED: NEOSTIGMINE METHYLSULFATE 0.5 MG/1 ML - 10 ML MDV ONE (11:23)
[2018-11-28] MEDS ORDERED: METOPROLOL TARTRATE 5 MG/5 ML VIAL ONE (11:44)
[2018-11-28] MEDS ORDERED: diphenhydrAMINE HCL 25 MG CAPSULE (FP) PO PRN (11:55)
[2018-11-28] MEDS ORDERED: HYDROmorphone *PCA* 10MG/50ML DISP.SYRIN PCA ONE (12:36)
--- NOTE | 2018-11-28 13:26 | PN ---
Progress Note (short form) - Note Progress Note: pt in or will follow later Problem List - Problems (1) Obesity Code(s): E66.9 - OBESITY, UNSPECIFIED (2) Back pain Code(s): M54.9 - DORSALGIA, UNSPECIFIED Qualifiers: Back pain location: low back pain Chronicity: acute Back pain laterality : midline Sciatica presence: without sciatica Qualified Code(s): M54.5 - Low back pain (3) Cervicalgia Code(s): M54.2 - CERVICALGIA (4) DVT prophylaxis Code(s): [id number] - (5) S/P lumbar laminectomy Code(s): Z98.890 - OTHER SPECIFIED POSTPROCEDURAL STATES
[2018-11-28] MEDS: LACTATED RINGERS SOLUTION 1,000 ML/1,000 ML INFUS.BAG IV SCH ×2 (13:30→21:53)
--- NOTE | 2018-11-28 14:42 | OP ---
Operative Note - Note: Operative Date: 11/28/18 Pre-Operative Diagnosis: cervical spondylosis/instability Operation: C5/6 corpectomies with sabianism of lordosis, reconstruction using PEEK cage and anterior plating Post-Operative Diagnosis: Same as Pre-op Surgeon: Uri Callahan Wooling Machine Operator: Dakota Arceo Anesthesiologist/MESSENGER COPY: All Kendrick Anesthesia: General Estimated Blood Loss (mls): 150 Fluid Volume Replaced (mls): 1,500 Operative Report Dictated: Yes
[2018-11-28] MEDS: DOCUSATE SODIUM 100 MG CAPSULE (FP) PO SCH ×2 (14:45→21:45)
--- NOTE | 2018-11-28 17:15 | PN ---
Progress Note (short form) - Note Progress Note: pt seen/ examined. s/p surgery today findings noted awake/ comfortable pain under control at bedside Vital Signs Temp 97.5 F L 11/28/18 15:00 Pulse 60 11/28/18 15:00 Resp 18 11/28/18 15:00 BP 123/76 11/28/18 15:00 Pulse Ox 98 11/28/18 15:00 Intake & Output 11/27/18 11/28/18 11/28/18 23:59 11:59 23:59 Intake Total 1375 1800 50 Output Total 760 20 Balance 1375 1040 30 Intake: IV 375 1800 50 D5-1/2Ns - 1,000 ml @ 75 375 mls/hr IV ASDIR ROXANN Rx#: [id number] Oral 1000 Output: Drainage 10 20 Urine 600 0 Void 500 Estimated Blood Loss 150 Other: Voiding Method Toilet Toilet Toilet # Unmeasured Voids Void 2 1 Bowel Movement No No Active Medications Cyclobenzaprine HCl (Flexeril -) 10 mg PO HS [facility] Dexamethasone Sodium Phosphate (Decadron Injection -) 4 mg IVPUSH ONCE PRN PRN Reason: NAUSEA AND/OR VOMITING Diphenhydramine HCl (Benadryl -) 25 mg PO Q6H PRN PRN Reason: FOR ITCHING Diphenhydramine HCl (Benadryl Injection -) 12.5 mg IVPUSH ONCE PRN PRN Reason: FOR ITCHING Stop: 11/29/18 12:17 Docusate Sodium (Colace -) 100 mg PO TID [facility] Last Admin: 11/28/18 14:45 Dose: Not Given Enoxaparin Sodium (Lovenox -) 40 mg SQ DAILY [facility] Fentanyl (Sublimaze Injection -) 50 mcg IVPUSH [id number] PRN PRN Reason: PAIN-PACU ORDER X 4 DOSES ONLY Stop: 11/29/18 12:17 Ferrous Sulfate (Feosol -) 325 mg PO DAILY [facility] Folic Acid (Folic Acid -) 1 mg PO DAILY [facility] Hydromorphone HCl (Dilaudid Machine Setter -) 0 mg SKI BINDING FITTER AND REPAIRER SKI BINDING FITTER AND REPAIRER [facility]; Protocol Stop: 12/05/18 08:46 Cefazolin Sodium (Ancef 1 Gm Premixed Ivpb -) 1 gm in 50 mls @ 100 mls/hr IVPB Q8H-IV ROXANN Last Admin: 11/28/18 17:30 Dose: 100 mls/hr Lactated Ringer's (Lactated Ringers Solution) 1,000 ml in 1,000 mls @ 125 mls/ hr IV ASDIR [facility] Last Admin: 11/28/18 13:30 Dose: 50 mls Morphine Sulfate (Morphine Sulfate) 4 mg IVPUSH Q6H PRN PRN Reason: PAIN LEVEL 7 - 10 Ondansetron HCl (Zofran Injection) 4 mg IVPUSH Q4H PRN PRN Reason: NAUSEA AND/OR VOMITING Stop: 11/29/18 08:45 Promethazine HCl (Phenergan Injection -) 12.5 mg IVPB Q6H PRN PRN Reason: NAUSEA AND/OR VOMITING Stop: 11/29/18 08:45 Tamsulosin HCl (Flomax -) 0.4 mg PO DAILY@0830 [facility] CBC, BMP 11/27/18 02:00 11/27/18 02:00 Physical Exam Constitutional: Yes:comfortable Eyes: Yes: Conjunctiva Clear Cardiovascular: Yes: Regular Rate and Rhythm Respiratory: Yes: CTA Bilaterally Gastrointestinal: Yes: Soft Edema: No Neurological: Yes: Alert Psychiatric: Yes: Alert a/p Operation: C5/6 corpectomies with restorationism of lordosis, reconstruction using PEEK cage and anterior plating. pain control continue present care dvt prophylaxis will follow discussed with also Problem List - Problems (1) Obesity Code(s): E66.9 - OBESITY, UNSPECIFIED (2) Back pain Code(s): M54.9 - DORSALGIA, UNSPECIFIED Qualifiers: Back pain location: low back pain Chronicity: acute Back pain laterality : midline Sciatica presence: without sciatica Qualified Code(s): M54.5 - Low back pain (3) Cervicalgia Code(s): M54.2 - CERVICALGIA (4) DVT prophylaxis Code(s): [id number] - (5) S/P lumbar laminectomy Code(s): Z98.890 - OTHER SPECIFIED POSTPROCEDURAL STATES
[2018-11-28] MEDS: CEFAZOLIN 1 GM/D5W 1 GM/50 ML BAG IVPB SCH (17:30)
[2018-11-28] MEDS ORDERED: CYCLOBENZAPRINE HCL 10 MG TABLET (FP) PO SCH (22:00)
[2018-11-29] MEDS: CEFAZOLIN 1 GM/D5W 1 GM/50 ML BAG IVPB SCH ×2 (02:13→09:14)
[2018-11-29] MEDS: DOCUSATE SODIUM 100 MG CAPSULE (FP) PO SCH ×2 (06:29→14:05)
[2018-11-29 07:16] LABS: BASO % 0.4 % (0-2.0); EOS % 0.1 % (0-4.5); HEMATOCRIT 38.4 % (35.4-49); HEMOGLOBIN 13.2 GM/dL (11.7-16.9); LYMPH % 15.1 % (8-40); MCH 29.9 pg (25.7-33.7); MCHC 34.4 g/dl (32.0-35.9); MEAN CELL VOLUME 86.9 fl (80-96); MEAN PLT VOLUME 8.7 fl (7.5-11.1); MONO % 7.6 % (3.8-10.2); NEUT % 76.8 % (42.8-82.8); PLATELET COUNT 262 K/MM3 (134-434); RBC 4.42 M/mm3 (4.00-5.60); WHITE BLOOD COUNT 12.6 K/mm3 (4.0-10.0)
[2018-11-29] MEDS ORDERED: TAMSULOSIN HCL 0.4 MG CAP PO SCH (08:30)
[2018-11-29 08:48] LABS: ALBUMIN 3.4 g/dl (3.4-5.0); ALK PHOS 82 U/L (45-117); ANION GAP 8 MMOL/L (8-16); BILIRUBIN,TOTAL 0.3 mg/dL (0.2-1); BLOOD UREA NITROGEN 14 mg/dL (7-18); CALCIUM 8.3 mg/dL (8.5-10.1); CHLORIDE 107 mmol/L (98-107); CO2 25 mmol/L (21-32); CREATININE 0.5 mg/dL (0.55-1.3); GLUCOSE,RANDOM 109 mg/dL (74-106); POTASSIUM 3.9 mmol/L (3.5-5.1); SGOT/AST 16 U/L (15-37); SGPT/ALT 23 U/L (13-61); SODIUM 140 mmol/L (136-145); TOT PROT 6.9 g/dl (6.4-8.2)
--- NOTE | 2018-11-29 09:13 | PN ---
Progress Note (short form) - Note Progress Note: Patient doing very well after C5 & C6 corpectomies and anterior Cervical reconstruction. CITLALI output < 100cc. Patient reports reduced clonus and pain compared to prior to surgery. Patient instructed in use of collar and was advised to avoid flexion. CITLALI removed uneventfully with tip intact. Wound is clean, dry and intact. Patient's voice and swallowing are WNL. Patient ambulating well with his cane. PLAN - d/c ENTRY LEVEL MECHANICAL ENGINEER and switch to oral regimen (his Lumbar pain medications should be sufficient) - Patient stable for discharge from Neurosurgery standpoint. I gave him contact information and he will call my office Saturday morning to arrange appointment - Will consider revision of Lumbar construct on December 30, 2018. - Will defer formal PT as outpatient and will encourage walking for now. Once I see him in the office, I will determine the next steps in his recovery program
--- NOTE | 2018-11-29 09:56 | PN ---
Progress Note (short form) - Note Progress Note: Post op day#1.S/P C5 and C6 Corpectomy under GA uneventful.Patient stable and c/ o pain score of 4-5/10.Will DC FLIGHT OPERATIONS MANAGER as patient will be Dc home later today.So patient will be on PO pain medication.No any anesthesia related problem.Patient DC from the anesthesia care.
[2018-11-29] MEDS ORDERED: FERROUS SO4 325 MG TABLET (FP) PO SCH (10:00)
[2018-11-29] MEDS ORDERED: ENOXAPARIN NA (PORCINE) 40 MG/0.4 ML DISP.SYRIN SQ SCH (10:00)
[2018-11-29] MEDS ORDERED: FOLIC ACID 1 MG TABLET (FP) PO SCH (10:00)
--- NOTE | 2018-11-29 12:15 | CON.NEURO ---
Consult Consult Specialty:: NEUROLOGY-KALEIGH MENDEZ - History of Present Illness History of Present Illness: Dr. Cornell's and Dr. Velasco's care/intervention greatly appreciated.rts Chart/hx. reviewed. s/p cervical corpectomy. Reports minimal cervical pain, improved left arm ROM. His exam reveals 5/5 strength except left deltoid is limited 2/2 pain, left b/t/ br jers are 1+, rest all 2+ -Pt. is doing very well post-surgicallly, for d/c home today. he will return to my office for f/u next week, he has my#, will call himself. Thanks again to the entire team for such good care rendered to my patient. Thank you, Maurilio Waletr MD - Past Medical History Additional Medical History: No significant PMH - Past Surgical History Past Surgical History: Yes: None - Alcohol/Substance Use Hx Alcohol Use: No Number of Drinks Daily: 4 History of Substance Use: reports: None - Smoking History Smoking history: Former smoker Have you smoked in the past 12 months: No Aproximately how many cigarettes per day: 0 If you are a former smoker, when did you quit?: 06/2018 Home Medications - Allergies Allergies/Adverse Reactions: Allergies Allergy/AdvReac Type Severity Reaction Status Date / Time gabapentin Allergy Verified 11/26/18 19:54 meloxicam Allergy Verified 11/26/18 19:54 - Home Medications Home Medications: Ambulatory Orders Tamsulosin HCl [Flomax -] 0.4 mg PO DAILY@0830 30 Days #30 cap.er.24h 07/02/18 Ferrous Sulfate 325 mg PO DAILY 07/28/18 Folic Acid 1 mg PO DAILY 07/28/18 Oxycodone HCl 5 mg PO Q3H5XD 07/28/18 Cyclobenzaprine HCl [Flexeril -] 10 mg PO HS #10 tablet 09/11/18 Physical Exam-Neuro Vital Signs: Vital Signs Temperature 98.6 F 11/29/18 06:00 Pulse Rate 72 11/29/18 06:00 Respiratory Rate 20 11/29/18 06:00 Blood Pressure 115/60 11/29/18 06:00 O2 Sat by Pulse Oximetry (%) 98 11/28/18 15:00 Labs: CBC, BMP 11/29/18 06:00 11/29/18 06:00 INR, PTT INR 1.01 (0.83-1.09) 11/27/18 16:45
--- NOTE | 2018-11-29 12:47 | DS ---
Physical Examination Vital Signs: Vital Signs Temperature 98.6 F 11/29/18 06:00 Pulse Rate 72 11/29/18 06:00 Respiratory Rate 20 11/29/18 09:00 Blood Pressure 115/60 11/29/18 06:00 O2 Sat by Pulse Oximetry (%) 98 11/29/18 09:00 Constitutional: Yes: No Distress, Calm Cardiovascular: Yes: Regular Rate and Rhythm Respiratory: Yes: CTA Bilaterally Gastrointestinal: Yes: Normal Bowel Sounds, Soft. No: Tenderness Edema: No Labs: CBC, BMP 11/29/18 06:00 11/29/18 06:00 Discharge Summary Reason For Visit: LBP, STATUS POST LUMBAR LAMINECTOMY,NECK PAIN Current Active Problems Back pain (Acute) Cervicalgia (Acute) Intractable low back pain (Acute) Obesity (Acute) Hospital Course: Admitted for neck pain Seen by Neurology and Neurosurgery-- - Note: Operative Date: 11/28/18 Pre-Operative Diagnosis: cervical spondylosis/instability Operation: C5/6 corpectomies with yazidi of lordosis, reconstruction using PEEK cage and anterior plating Post-Operative Diagnosis: Same as Pre-op Surgeon: Uri Callahan Drafter Plumbing: Dakota Arceo Anesthesiologist/EXPEDITER SERVICE ORDER: All Kendrick Anesthesia: General Estimated Blood Loss (mls): 150 Fluid Volume Replaced (mls): 1,500 Operative Report Dictated: Yes Pt is better pain controlled stable for dc home and follow up with Dr Callahan as an outpt Lumbar reconstruction on Dec 30 walking for now-- no PT eval yet outpt dry dressing daily Condition: Stable - Instructions Diet, Activity, Other Instructions: Post Operative Instructions Physical Activity Resume your normal everyday activity as tolerated. No heavy lifting or exercise until seen by your surgeon. You may walk unlimited amounts and climb stairs. You may resume driving the car when you feel safe and comfortable behind the wheel and you are no longer wearing your brace. Do not operate a vehicle while taking narcotic medication. Brace If you had neck surgery, wear surgical collar 23 hr/day. Remove to shower only( keep incision covered with occlusive dressing while showering) Wound Care Keep your incision clean, dry and covered at all times. Apply an occlusive dressing (Saran wrap or Tegaderm) when showering to avoid getting your incision wet. Do not submerge incision or apply ointments or creams. The chau will be removed in the office in 10-14 days post-op. Diet There are no dietary restrictions. Eat healthy, high-fiber foods. Drink 6-8 glasses of liquid each day. This will assist in keeping your bowels regular. Pain Management You may take Tylenol or acetaminophen. Any pain prescription medication ordered should be taken as prescribed for moderate to severe pain. Call Dr Alves for any of the following: Severe pain not relieved by medication Fever of 101 or higher Excessive bleeding or drainage on dressing Inability to urinate Any chest pain or shortness of breath, seek Emergency Care. Call the office to confirm a post-operative appointment for 2-3 weeks post-op Uri Callahan MD [facility] [address] [place] [address]. [place] [address] Referrals: Raciel Walter MD [Primary Care Provider] - Uri Callahan MD, FAANS [Staff Physician] - Disposition: HOME - Home Medications Comprehensive Discharge Medication List: Ambulatory Orders Tamsulosin HCl [Flomax -] 0.4 mg PO DAILY@30 30 Days #30 cap.er.24h 07/02/18 Ferrous Sulfate 325 mg PO DAILY 07/28/18 Folic Acid 1 mg PO DAILY 07/28/18 Oxycodone HCl 5 mg PO Q3H5XD 07/28/18 Cyclobenzaprine HCl [Flexeril -] 10 mg PO HS #10 tablet 09/11/18
--- NOTE | 2018-11-29 13:18 | PN ---
Progress Note (short form) - Note Progress Note: To [facility] Pt underwent cervical spine surgery on 11/28/18 in [facility] . He will not be able to continue physical therapy for now till further recommendations by Neurosurgeon- Dr Uri Callahan .He has a follow up with him this week. Sincerely , Dr Jessica Shipley Medicine
--- NOTE | 2018-11-29 13:19 | EKG ---
Test Reason : Blood Pressure : / mmHG Vent. Rate : 061 BPM Atrial Rate : 061 BPM P-R Int : 158 ms QRS Dur : 082 ms QT Int : 410 ms P-R-T Axes : 051 -11 034 degrees QTc Int : 412 ms NORMAL SINUS RHYTHM WITH SINUS ARRHYTHMIA INFERIOR INFARCT (CITED ON OR BEFORE 13-JUN-2018) ABNORMAL ECG WHEN COMPARED WITH ECG OF 29-JUL-2018 00:30, NO SIGNIFICANT CHANGE WAS FOUND Confirmed by DIANNA CORDOBA MD ([id number]) on 11/29/2018 1:18:43 PM Referred By: Confirmed By:DIANNA CORDOBA MD
[2018-11-29 13:32] VITALS: BP 135/78; PULSE 74; TEMP 98.5
--- NOTE | 2018-12-08 16:46 | SURG ---
Surgery Veneer Jointer Helper Note Veneer Jointer Helper: Dakota Arceo PA-C Date of Service: 11/28/18 Diagnosis: Cervical spondylotic myelopathy Procedure: 1.Interbody cage 2. C5 corpectomy with resection of Osteophytes and posterior longitudinal ligament 3. C6 corpectomy with resection of Osteophytes and posterior longitudinal ligament 4. C7 Rostral Hemicorpectomy with resection of Osteophytes and posterior longitudinal ligament 5. Anterior instrumentation C4-C7 (technically challenging) 6. Fluoroscopy 7. Microdiscection 8. C4/5 Arthodesis 9. C5/6 Arthodesis 10. C6/7 Arthrodesis 11. Local Autograft 12. Deformity Correction (anglican of lordosis) I was present for the entirety of the operative procedure. For further detail, please refer to operative report. Visit type - Case Type Case Type: Scheduled - Emergency Emergency Visit: No - New patient This patient is new to me today: Yes Date on this admission: 12/08/18
== END 2018-11-29 14:17 | disposition home or self-care (01) | DRG 321 ==
LOC: JER 15:33 → JERBED 17:27 → J5S 11-27 02:25 → J6S 11-28 14:20
PROVIDERS: ADMIT Internal Medicine; ATTEND Internal Medicine
PROC: B01BZZZ Fluoroscopy of Spinal Cord (ICD-10-PCS; 2018-11-28)
PROC: XRG20F3 Fusion of 2 or more Cervical Vertebral Joints using Radiolucent Porous Interbody Fusion Device, Open Approach, New Technology Group 3 (ICD-10-PCS; principal; 2018-11-28 09:00)
DX: M47.12 Other spondylosis with myelopathy, cervical region (principal); M50.022 Cervical disc disorder at C5-C6 level with myelopathy; M50.023 Cervical disc disorder at C6-C7 level with myelopathy; E66.9 Obesity, unspecified; Z68.35 Body mass index [BMI] 35.0-35.9, adult; M54.2 Cervicalgia; M54.5 Low back pain; M62.830 Muscle spasm of back; R20.2 Paresthesia of skin; M50.120 Mid-cervical disc disorder, unspecified level; Z98.890 Other specified postprocedural states
CPT/HCPCS: 36415; 72125-TC; 72131-TC; 72141-TC; 72148-TC; 80048; 80053; 85025; 85610; 86850; 86900; 86901; 93005; 93010; 94760; 97116-GP; 97161-GP; 99282-25

== ENCOUNTER 2019-05-21 13:36 | Emergency (ER) | payer OTHER ==
[2019-05-21 14:01] VITALS: BP 116/75; PULSE 73; TEMP 98.5; BMI 37.2
--- NOTE | 2019-05-21 14:02 | PDOC ---
Rapid Medical Evaluation Chief Complaint: Chest Pain Time Seen by Provider: 05/21/19 13:59 Medical Evaluation: Allergies Allergy/AdvReac Type Severity Reaction Status Date / Time gabapentin Allergy Verified 11/26/18 19:54 meloxicam Allergy Verified 11/26/18 19:54 05/21/19 13:59 I have performed a brief in-person evaluation of this patient. The patient presents with a chief complaint of: intermittant CP, palpitations/ pinching pain/heaviness/ +SOB Pertinent physical exam findings: Wears back and neck brace from failed fusions x 1year, I have ordered the following: EKg , The patient will proceed to the ED for further evaluation. Discharge Disposition - Diagnosis Chest pain - Referrals - Patient Instructions - Post Discharge Activity
[2019-05-21] MEDS ORDERED: oxyCODONE HCL 5 MG TABLET PO ONE ×2 (15:15→16:10)
--- NOTE | 2019-05-21 15:17 | EKG ---
Test Reason : Blood Pressure : / mmHG Vent. Rate : 074 BPM Atrial Rate : 074 BPM P-R Int : 160 ms QRS Dur : 084 ms QT Int : 380 ms P-R-T Axes : 039 -19 025 degrees QTc Int : 421 ms SINUS RHYTHM WITH PREMATURE ATRIAL COMPLEXES OTHERWISE NORMAL ECG WHEN COMPARED WITH ECG OF 27-NOV-2018 13:42, PREMATURE ATRIAL COMPLEXES ARE NOW PRESENT Confirmed by VALERIANO MENDEZ, CARL ([id number]) on 05/21/2019 3:17:24 PM Referred By: Confirmed By:CARL BAL MD
--- NOTE | 2019-05-21 15:36 | PDOC ---
History of Present Illness - General Chief Complaint: Chest Pain Stated Complaint: CHEST PAIN Time Seen by Provider: 05/21/19 13:59 - History of Present Illness Initial Comments: 05/21/19 18:39 43yo M hx obesity, GERD, restless leg syndrome, and back and neck brace 2/2 failed fusion 1yr ago on Oxy 5mg QID presents from home c/o L-sided chest pain. Pain is pressure-type, pleuritic, L-sided, worse with shoulder movement and deep breaths, sudden onset this AM at 1130 waking him from sleep, intermittent. Endorses generalized weakness and fatigue. Denies hx of similar sx, cardiac problems, or pulmonary problems. Endorses weight gain of 100lbs in 3 years, baseline walks w/2 canes. Endorses chronic neck and back pain s/p surgeries with Dr. Miranda and Dr Callahan. Currently has issues with Dr Callahan and states he cannot get in touch with him and would like to see him at bedside. Denies trauma, heavy lifting, falls, COWAN, dizziness, SOB, cough, F/C, N/V, abdominal pain, new back or neck pain, dysuria, D/C, blood in stool, numbness/tingling, weakness. Past History - Past Medical History Allergies/Adverse Reactions: Allergies Allergy/AdvReac Type Severity Reaction Status Date / Time gabapentin Allergy Verified 05/21/19 14:01 meloxicam Allergy Verified 05/21/19 14:01 Home Medications: Ambulatory Orders Tamsulosin HCl [Flomax -] 0.4 mg PO DAILY@0830 30 Days #30 cap.er.24h 07/02/18 Ferrous Sulfate 325 mg PO DAILY 07/28/18 Folic Acid 1 mg PO DAILY 07/28/18 Adhesive Bandage [Tegaderm + Pad] 1 each TP DAILY #30 bandage 11/29/18 Cyclobenzaprine HCl [Flexeril -] 10 mg PO HS #20 tablet 11/29/18 Docusate Sodium [Colace -] 100 mg PO TID #60 capsule 11/29/18 Gauze Bandage [Gauze Dressing] 1 each TP DAILY #30 bandage 11/29/18 Oxycodone HCl 5 mg PO Q8H PRN #14 tablet MDD 3 11/29/18 Anemia: No Asthma: No Cancer: No Cardiac Disorders: No CVA: No COPD: No CHF: No Dementia: No Diabetes: No GI Disorders: No Disorders: No HTN: No Hypercholesterolemia: No Liver Disease: No Seizures: No Thyroid Disease: No - Surgical History Neurologic Surgery: Yes (lumbar fusion 06/2019) - Immunization History Immunization Up to Date: No - Suicide/Smoking/Psychosocial Hx Smoking History: Never smoked Have you smoked in the past 12 months: No Number of Cigarettes Smoked Daily: 0 If you are a former smoker, when did you quit?: 06/2018 Information on smoking cessation initiated: No 'Breaking Loose' booklet given: 05/13/14 Hx Alcohol Use: No Drug/Substance Use Hx: No Substance Use Type: None Hx Substance Use Treatment: No Review of Systems - Review of Systems Comments:: 05/21/19 18:40 Constitutional: Negative for chills, fever, fatigue. HENT: Negative for sore throat, rhinorrhea, congestion. Eyes: Negative for visual disturbance. Respiratory: Negative for shortness of breath, cough, and wheezing. Cardiovascular: Positive for chest pain. Negative for palpitations, and leg swelling. Gastrointestinal: Negative for abdominal pain, blood in stool, constipation, diarrhea, nausea, and vomiting. Genitourinary: Negative for dysuria, flank pain, and hematuria. Musculoskeletal: Positive for chronic back and neck pain. Negative for myalgias. Skin: Negative for rash. Neurological: Negative for light-headedness, dizziness, syncope, weakness, numbness and headaches. Psychiatric/Behavioral: Negative for behavioral problems and confusion. *Physical Exam - Vital Signs Last Vital Signs Temp Pulse Resp BP Pulse Ox 98.5 F 73 21 H 116/75 100 05/21/19 13:58 05/21/19 13:58 05/21/19 13:58 05/21/19 13:58 05/21/19 13:58 - Physical Exam Comments: 05/21/19 18:41 Gen: Alert, NAD, comfortable-appearing, lying on back in back and neck brace, obese. HEENT: In neck brace. PERRL, EOMI, MMM, NCAT. No conjunctival pallor. Sclera are non-icteric. Oropharynx is clear. CV: TTP with palpation of L chest. Regular rate and rhythm. No murmurs, rubs, or gallops. PULM: No resp distress. CTAB, no wheezes, rales, or rhonchi. ABD: soft, NT/ND, no rebound tenderness or guarding, no CVA tenderness. BACK: In back and neck brace. No step-offs or deformities seen (did not remove braces). MSK: No bony deformities. 2+ pulses in all extremities. NEURO: AAOx3. PERRL. No gross CN deficits. Strength and sensation grossly intact throughout. EXTREMITIES: No cyanosis. No clubbing. No edema. No calf tenderness. PSYCH: Normal mood and thought pattern. SKIN: Warm and dry. Normal capillary refill. No rashes. No jaundice. Heart Score/ECG Review - ECG Impressions Comment:: 05/21/19 18:30 74bpm, sinus rhythm with premature atrial complexes, normal axis, no CARINE/TWI ED Treatment Course - LABORATORY CBC & Chemistry Diagram: 05/21/19 16:00 05/21/19 15:47 - RADIOLOGY Radiology Studies Ordered: Category Date Time Status CHEST PA & LAT [RAD] Stat Radiology 05/21/19 15:15 Ordered Medical Decision Making - Medical Decision Making 43yo M hx obesity, GERD, restless leg syndrome, and back and neck brace 2/2 failed fusion 1yr ago on Oxy 5mg QID presents from home with reproducible L- sided, pressure-type, pleuritic chest pain, sudden onset this AM at 1130, intermittent. Endorses chronic neck and back pain s/p surgeries with Dr. Miranda and Dr Callahan. Currently has issues with Dr Callahan and states he cannot get in touch with him and would like to see him at bedside - will call Dr Callahan for further information. Presentation most consistent with muskuloskeletal CP. Low concern for ACS/SC due to reproducibility of pain and low HEART score - r/o with EKG and trop x2. Low concern for PNA or pulmonary etiology of CP due to lack of cough and lungs CTAB - r/o with labs and CXR. Low Wells score, but weight gain, lungs CTAB, and localized pain concerning for PE - obtain CTPE. Neck pain consistent with chronic neck pain with no new traumas - obtain XR c-spine to confirm no changes. -EKG -Labs: CBC, CMP, Cardiac profile, coags -2nd trop at 1845 -CXR, CTPE, XR c-spine -5mg oxy (his home dose) -call Dr Callahan -Dispo: likely d/c home pending w/u Spoke with Dr Callahan on phone. States that pt engaged in inappropriate conduct and is only allowed to contact the office via email or writing. States he will of course come in if urgent neurosurgical intervention is needed, but for non-emergent care, pt should follow-up with the office as instructed. 05/21/19 18:30 Labs reviewed. No abnormalities noted. Trop<0.02. 05/21/19 19:34 Pt signed out to Dr. Bolton. *DC/Admit/Observation/Transfer Diagnosis at time of Disposition: Chest pain - Referrals - Patient Instructions - Post Discharge Activity
[2019-05-21] MEDS ORDERED: oxyCODONE HCL 5 MG TABLET ONE ×2 (16:06→16:15)
[2019-05-21 16:21] LABS: EOS % 3.7 % (0-4.5); HEMATOCRIT 41.1 % (35.4-49); HEMOGLOBIN 13.8 GM/dL (11.7-16.9); LYMPH % 36.4 % (8-40); MCH 29.5 pg (25.7-33.7); MCHC 33.5 g/dl (32.0-35.9); MEAN PLT VOLUME 8.4 fl (7.5-11.1); MONO % 9.5 % (3.8-10.2); NEUT % 49.4 % (42.8-82.8); PLATELET COUNT 266 K/MM3 (134-434); RBC 4.68 M/mm3 (4.00-5.60); RDW 13.8 % (11.9-15.9); WHITE BLOOD COUNT 6.8 K/mm3 (4.0-10.0)
[2019-05-21 16:31] LABS: INR 0.97 (0.83-1.09); PROTHROMBIN TIME (PATIENT) 11.5 SEC (9.7-13.0)
[2019-05-21 16:33] LABS: ACTIVATED PTT 34.8 SECONDS (25.2-36.5)
[2019-05-21 16:37] LABS: ALBUMIN 3.5 g/dl (3.4-5.0); BILIRUBIN,TOTAL 0.4 mg/dL (0.2-1); BLOOD UREA NITROGEN 12.9 mg/dL (7-18); CALCIUM 8.5 mg/dL (8.5-10.1); CREATININE 0.5 mg/dL (0.55-1.3); POTASSIUM 3.8 mmol/L (3.5-5.1); TOT PROT 6.9 g/dl (6.4-8.2)
--- NOTE | 2019-05-21 17:23 | PDOC ---
Documentation entered by Gely Márquez SCRIBE, acting as scribe for Toya Lockwood MD. Toya Lockwood MD: This documentation has been prepared by the Willi de leon Brenda, SCRIBE, under my direction and personally reviewed by me in its entirety. I confirm that the documentation accurately reflects all work, treatment, procedures, and medical decision making performed by me. Attending Attestation - Resident Resident Name: Namita Santiago - ED Attending Attestation I have performed the following: I have examined & evaluated the patient, The case was reviewed & discussed with the resident, I agree w/resident's findings & plan, Exceptions are as noted - HPI HPI: 05/21/19 17:10 The patient is a 43 year old male, with a significant PMH of spinal fusion in June, who presents to the emergency department with left sided sharp, pulling chest pain. As per patient, the bryce pain is non radiating and non reproducible. He describes it as a waxing waning pain, that is constantly there but has bouts of alleviation and aggravation. The patient also endorses generalized achiness and pain in muscles, he notes that he is having a hard time getting comfortable and feels weaker than his baseline. The patient also says that he is unable to take a deep breath, due to feeling as if his heart is racing and palpitations. He also endorses significant weight gain. The patient denies headache and dizziness. Denies fever, chills, nausea, vomiting, diarrhea and constipation. Denies dysuria, frequency, urgency and hematuria. Denies any other symptoms. Allergies: gabapentin, melaxopen Past surgical history: L5/S1 spinal fusion surgery on 06/25 Social history: Former smoker, quit 06/2018 PCP: Vahe Miranda - Physicial Exam PE: 05/21/19 14:21 GENERAL: The patient is in no acute distress, LSO brace in place. ENT: Ears normal, nares patent, oropharynx clear without exudates. Moist mucous membranes. NECK: Cervical collar in place, LUNGS: Breath sounds equal, clear to auscultation bilaterally. No wheezes, and no crackles. HEART: Regular rate and rhythm, normal S1 and S2 without murmur, rub or gallop. Left Chest wall tenderness to palpation ABDOMEN: Soft, nontender EXTREMITIES: Normal range of motion, no edema. NEUROLOGICAL: Cranial nerves II through XII grossly intact. Normal speech. No focal neurological deficits. SKIN: No rashes seen, no bruising seen, surgical site not seen 05/21/19 17:16 - Medical Decision Making 05/21/19 17:21 Mr Mobley presents with a complaint of chest pain He has a complicated surgical history secondary to back injury He reports that he awoke with severe left chest pain, mild shortness of breath No fevers or chills No nausea, vomiting, diarrhea Taking pain medications Laboratory Tests 05/21/19 05/21/19 05/21/19 15:47 16:00 16:00 WBC 6.8 Hgb 13.8 Hct 41.1 Plt Count 266 INR 0.97 BUN 12.9 Creatinine 0.5 L Random Glucose 67 L Will do: CTA chest (r/o PE) Cervical Spine Xray Pt given Oxycodone Will re assess Signed out to overnight team
--- NOTE | 2019-05-21 20:10 | PDOC ---
*Physical Exam - Vital Signs Last Vital Signs Temp Pulse Resp BP Pulse Ox 98.5 F 73 21 H 116/75 100 05/21/19 13:58 05/21/19 13:58 05/21/19 13:58 05/21/19 13:58 05/21/19 13:58 - Physical Exam General Appearance: Yes: Nourished, Appropriately Dressed. No: Apparent Distress HEENT: positive: Normal ENT Inspection, Normal Voice Neck: positive: Supple, Decreased range of motion Respiratory/Chest: positive: Lungs Clear Cardiovascular: positive: Regular Rhythm, Regular Rate, S1, S2 Vascular Pulses: Dorsalis-Pedis (R): 2+, Doralis-Pedis (L): 2+ Gastrointestinal/Abdominal: positive: Soft Rectal Exam: positive: deferred Lymphatic: negative: Adenopathy Musculoskeletal: positive: Normal Inspection Extremity: positive: Normal Capillary Refill Integumentary: positive: Normal Color, Dry, Warm Neurologic: positive: Fully Oriented, Alert, Normal Mood/Affect ED Treatment Course - LABORATORY CBC & Chemistry Diagram: 05/21/19 16:00 05/21/19 15:47 - ADDITIONAL ORDERS Additional order review: Laboratory Results 05/21/19 05/21/19 05/21/19 16:04 16:00 15:47 PT with INR 11.50 INR 0.97 PTT (Actin FS) 34.8 Sodium 141 Potassium 3.8 Chloride 107 Carbon Dioxide 29 Anion Gap 5 L BUN 12.9 Creatinine 0.5 L Est GFR (CKD-EPI)AfAm 153.83 Est GFR (CKD-EPI)NonAf 132.72 Random Glucose 67 L Calcium 8.5 Total Bilirubin 0.4 AST 14 L ALT 25 Alkaline Phosphatase 81 Creatine Kinase 114 Troponin I < 0.02 Total Protein 6.9 Albumin 3.5 05/21/19 16:00 RBC 4.68 MCV 88.0 MCHC 33.5 RDW 13.8 MPV 8.4 Neutrophils % 49.4 D Lymphocytes % 36.4 D Monocytes % 9.5 Eosinophils % 3.7 D Basophils % 1.0 - RADIOLOGY Radiograph Interpretation: CTA pe: Chest CT angiography Clinical information: evaluate for pulmonary embolism Multiplanar imaging was performed following the intravenous administration of nonionic contrast. No prior chest CT studies are available at this facility for direct comparison. No discrete pulmonary embolus is noted. There is no evidence of pneumothorax, infiltrate or pleural effusion. Minimal bibasilar dependent atelectasis is seen. A 2 mm noncalcified right upper lobe nodule is noted. There is also visualization of a 2 mm noncalcified nodule within the lateral basal segment of the right lower lobe. The punctate right middle lobe nodule appears unchanged in comparison to an abdomen CT study of 05/13/2014 which partially imaged the lower chest. The trachea and central bronchi demonstrate no obvious pathology There is no definite cardiac enlargement. No definite lymphadenopathy is seen. There is no aortic aneurysm. The visualized osseous structures demonstrate no obvious CT evidence of acute abnormality. Surgical instrumentation is noted within the partially imaged lower cervical spine. Impression: No CT evidence of pulmonary embolism or other acute intrathoracic pathology. 2 mm noncalcified right upper and right middle lobe pulmonary nodules are seen. The punctate right middle lobe nodule is unchanged in comparison to a [address] study. - Medications Given in the ED: ED Medications Discontinued Medications Generic Name Dose Route Start Last Admin Trade Name Freq PRN Reason Stop Dose Admin Oxycodone HCl 5 mg 05/21/19 15:15 05/21/19 16:11 Roxicodone - PO 05/21/19 15:16 Not Given ONCE ONE Oxycodone HCl 5 mg 05/21/19 16:10 05/21/19 16:16 Roxicodone - PO 05/21/19 16:11 5 mg ONCE ONE Administration Medical Decision Making - Medical Decision Making 43 yo M signed out to me from day team pending CTA pe read and 2nd trop. 43yo M hx obesity, GERD, restless leg syndrome, and back and neck brace 2/2 failed fusion 1yr ago on Oxy 5mg QID presents from home c/o L-sided chest pain. CTA pe: No evidence of acute PE. 2nd trop: negative Disposition: Home *DC/Admit/Observation/Transfer Diagnosis at time of Disposition: Chest pain - Discharge Dispostion Disposition: HOME Condition at time of disposition: Improved Decision to Admit order: No - Referrals Referrals: Vahe Miranda MD [Staff Physician] - - Patient Instructions Printed Discharge Instructions: DI for Chest Pain, DI for Atypical Chest Pain Additional Instructions: Please make sure to follow up with your primary care doctor in the next 3 to 5 days to make sure you are getting better and being taken care of. Come back to the ER immediately if your pain worsens or you have any other new or worsening concerns. Thank you for coming to the [facility]. We hope you feel better soon! Print Language: MOLDOVAN - Post Discharge Activity
== END 2019-05-21 21:18 | disposition home or self-care (01) ==
LOC: JER 13:36
DX: R07.9 Chest pain, unspecified (principal); Z98.1 Arthrodesis status
CPT/HCPCS: 36415; 71275-TC; 72040-TC; 80053; 82550; 84484; 85025; 85610; 85730; 93005; 93010; 99283-25

== ENCOUNTER 2022-04-17 15:27 | Emergency (ER) | payer OTHER ==
[2022-04-17 16:08] VITALS: BP 127/82; PULSE 102; TEMP 98.3; BMI 46.2
[2022-04-17] MEDS ORDERED: METHOCARBAMOL 500 MG TABLET PO ONE (16:29)
[2022-04-17] MEDS ORDERED: ACETAMINOPHEN 500 MG TABLET (FP) PO ONE (16:30)
[2022-04-17] MEDS ORDERED: ACETAMINOPHEN 500 MG TABLET (FP) ONE (16:33)
[2022-04-17] MEDS ORDERED: METHOCARBAMOL 500 MG TABLET ONE (16:33)
== END 2022-04-17 19:04 | disposition home or self-care (01) ==
LOC: JERFT 15:27
DX: S13.9XXA Sprain of joints and ligaments of unspecified parts of neck, initial encounter (principal); X50.0XXA Overexertion from strenuous movement or load, initial encounter; Y04.8XXA Assault by other bodily force, initial encounter
CPT/HCPCS: 72125-TC; 99284-25

== ENCOUNTER 2022-06-27 19:53 | Emergency (ER) | payer OTHER ==
[2022-06-27 20:33] VITALS: TEMP 98; BMI 44.9
[2022-06-27] MEDS ORDERED: morphine SULFATE 4 MG/ML VIAL IVPUSH ONE (22:21)
[2022-06-27] MEDS ORDERED: morphine SULFATE 4 MG/ML VIAL ONE (22:40)
[2022-06-27 22:45] LABS: BASO % 0.2 % (0-2.0); EOS % 2.8 % (0-4.5); HEMATOCRIT 41.1 % (35.4-49); HEMOGLOBIN 13.9 GM/dL (11.7-16.9); LYMPH % 32.4 % (8-40); MCHC 33.8 g/dl (32.0-35.9); MEAN CELL VOLUME 85.7 fl (80-96); MEAN PLT VOLUME 8.5 fl (7.5-11.1); MONO % 10.2 % (3.8-10.2); NEUT % 54.4 % (42.8-82.8); PLATELET COUNT 276 10^3/uL (134-434); RBC 4.79 M/mm3 (4.00-5.60); RDW 13.7 % (11.9-15.9); WHITE BLOOD COUNT 8.7 K/mm3 (4.0-10.0)
[2022-06-27 23:06] LABS: CALCIUM 8.9 mg/dL (8.5-10.1)
[2022-06-27 23:07] LABS: ALBUMIN 3.4 g/dl (3.4-5.0); BLOOD UREA NITROGEN 16.1 mg/dL (7-18)
[2022-06-27 23:09] LABS: CREATININE 0.6 mg/dL (0.55-1.3)
[2022-06-27 23:11] LABS: BILIRUBIN,TOTAL 0.4 mg/dL (0.2-1); TOT PROT 7.2 g/dl (6.4-8.2)
[2022-06-28 02:52] VITALS: BP 111/62; PULSE 80; RESP 16
== END 2022-06-28 02:53 | disposition home or self-care (01) ==
LOC: JER 19:53
PROC: 3E033GC Introduction of Other Therapeutic Substance into Peripheral Vein, Percutaneous Approach (ICD-10-PCS; principal; 2022-06-27)
DX: R10.11 Right upper quadrant pain (principal)
CPT/HCPCS: 36415; 76705-TC; 80053; 83690; 84484; 85025; 93005; 93010; 99285-25